=== PATIENT | female | born 1935 | race Caucasian/White ===

== ENCOUNTER 2024-01-13 14:00 | Outpatient (RCR) | payer MEDICARE, SELFPAY | END 2024-01-13 15:30 | disposition home or self-care (01) | LOC: PT 14:00 | PROVIDERS: PCP Internal Medicine | DX: M79.661 Pain in right lower leg (principal); S81.801A Unspecified open wound, right lower leg, initial encounter | CPT/HCPCS: 97140; 97163; 97597 ==

== ENCOUNTER 2025-03-29 10:41 | Inpatient (IN) | payer MEDICARE, SELFPAY ==
[2025-03-29] VITALS (16 sets, daily range): BP systolic 92–124; BP diastolic 45–81; PULSE 42–112; RESP 14–22; TEMP 36.4–36.8; O2SAT 90–93; BMI 26.6
--- NOTE | 2025-03-29 10:17 | ECG_ITS ---
APPROVED REPORT Exam: Resting ECG HR:108 bpm ECG Measurements Heart Rate 108 AXES QRSd 142 QRS -74 QT 335 T 95 QTc 399 Conclusion ATRIAL FIBRILLATION WITH RAPID VENTRICULAR RESPONSE RIGHT BUNDLE BRANCH BLOCK [120+ ms QRS DURATION, UPRIGHT V1, 40+ ms S IN I/aVL/V4/V5/V6] INFERIOR MYOCARDIAL INFARCTION , POSSIBLY ACUTE [40+ ms Q WAVE AND/OR ST/T ABNORMALITY IN II/aVF] ACUTE AL UNCONFIRMED REPORT Electronically signed by : LEAH NUNES, 03/30/2025 01:45:19
--- NOTE | 2025-03-29 10:21 | XR_ITS ---
FINAL REPORT TECHNIQUE: Single view chest CLINICAL HISTORY: soa FINDINGS: A single view of the chest was obtained. The heart is mildly enlarged. The lungs are underpenetrated. There is a large right pleural effusion. 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 There is no pneumothorax. IMPRESSION: Lobular opacities the right hemithorax likely due to known neoplasm. Large right pleural effusion Reviewed, Interpreted and Dictated by Fred Sotelo MD Transcribed by Alma Mota Authenticated and [facility]
--- NOTE | 2025-03-29 10:21 | CT_ITS ---
FINAL REPORT TECHNIQUE: multiple axial CT images were performed from the foramen magnum to the vertex without enhancement. This study was performed with techniques to keep radiation doses as low as reasonably achievable (ALARA). Individualized dose reduction techniques using automated exposure control or adjustment of mA and/or kV according to the patient's size were employed. CLINICAL HISTORY: AMS COMPARISON: None FINDINGS: The ventricles are proportionately enlarged. There is diffuse moderate atrophy. There is periventricular white matter change likely related to small vessel disease. There is no evidence of hemorrhage. No masses are identified. No extra-axial fluid is seen. The sinuses are normal. IMPRESSION: Moderate atrophy and chronic changes without acute process. Reviewed, Interpreted and Dictated by Fred Sotelo MD Transcribed by Natalia Maki Authenticated and [facility]
--- NOTE | 2025-03-29 10:21 | CT_ITS ---
FINAL REPORT TECHNIQUE: Postcontrast axial images of the chest were performed in a CTA protocol. This study was performed with techniques to keep radiation doses as low as reasonably achievable, (ALARA). Individualized dose reduction technique using automated exposure control or adjustment of mA and/or kV according to the patient's size were employed. CLINICAL HISTORY: soa FINDINGS: The heart is normal in size. No adenopathy is identified. The thoracic aorta is normal in caliber with no focal aneurysm or dissection identified. There is no filling defect to suggest pulmonary embolism. There is a large right pleural effusion. A multitude of lobular masses are seen in the right lung measuring up to 6.0 x 4.5 cm in AP and transverse dimension. There are confluent masses in the right lower lobe. Scarring is noted at the left lung base. IMPRESSION: No evidence for PE on this exam. Large right pleural effusion. Multiple lobular masses in the right lung may represent primary or metastatic neoplasia. Reviewed, Interpreted and Dictated by Fred Sotelo MD Transcribed by Alma Mota Authenticated and [facility]
--- NOTE | 2025-03-29 10:21 | CT_ITS ---
FINAL REPORT TECHNIQUE: NASCET technique utilized for stenosis evaluation. CLINICAL HISTORY: ams COMPARISON: None FINDINGS: There is a large right pleural effusion with nodular appearing consolidation in the right upper lobe, that will be described on the CT of the chest from the same date. RIGHT CAROTID: No significant stenosis is seen of the cervical common or internal carotid artery. Dense carotid artery calcifications are present at the bifurcation, without significant stenosis. LEFT CAROTID: No significant stenosis seen of the cervical common or internal carotid artery. Dense carotid artery calcifications are present at the bifurcation, without significant stenosis. VERTEBRALS: The vertebrals are patent. No significant stenosis is present. IMPRESSION: No significant arterial abnormality. In the upper chest, there is a large right pleural effusion with nodular appearing consolidation in the right upper lobe. Reviewed, Interpreted and Dictated by Fred Sotelo MD Transcribed by Natalia Maki Authenticated and [facility]
--- NOTE | 2025-03-29 10:21 | CT_ITS ---
FINAL REPORT TECHNIQUE: After the administration of intravenous contrast, axial images were obtained through the abdomen and pelvis by computed tomography. This study was performed with technique to keep radiation doses as low as reasonably achievable, (ALARA). Individualized dose reduction techniques using automated exposure control or adjustment of the MA and/or KV according to the patient's size were employed. CLINICAL HISTORY: abd pain hx of cancer FINDINGS: Abdomen: There are multitude of low-attenuation masses in the bilateral hepatic lobes measuring up to 6.2 x 4.5 cm. The spleen is unremarkable. The adrenals are normal. There is a cyst seen in the tail of the pancreas measuring up to 1.6 cm in greatest dimension. There are benign-appearing bilateral renal cyst measuring to 4.2 cm in greatest dimension. The aorta is normal in caliber. There is no free fluid or adenopathy. Pelvis: The appendix is not identified. A De Santiago catheter is seen within a decompressed urinary bladder. There is no free fluid or adenopathy. There is lumbar scoliosis convex to the right 45 degrees. Dense vascular calcification is seen of the abdominal aorta and iliac vessels. There are scattered sigmoid diverticula. 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 Reviewed, Interpreted and Dictated by Fred Sotelo MD Transcribed by lAma Mota Authenticated and [facility]
--- NOTE | 2025-03-29 10:21 | CT_ITS ---
FINAL REPORT TECHNIQUE: thin section axial CT with and without IV contrast supplemented with multiplanar 3-D reconstruction of the head. This study was performed with techniques to keep radiation doses as low as reasonably achievable, (ALARA)individualized dose reduction techniques using automated exposure control or adjustment of mA and/or kV according to the patient's size were employed. CLINICAL HISTORY: AMS COMPARISON: None FINDINGS: HEAD CT: Moderate global atrophy is present. There is no evidence of hemorrhage. No masses are identified. No extra-axial fluid is seen. The sinuses are normal. CTA: The cranial circulation is unremarkable. There is no significant stenosis, aneurysm or occlusion. IMPRESSION: No acute process. Reviewed, Interpreted and Dictated by Fred Sotelo MD Transcribed by Natalia Maki Authenticated and [facility]
[2025-03-29] MEDS: DEXTROSE 10 % IN WATER 500 ML 25 ML IV (10:30)
--- NOTE | 2025-03-29 10:37 | ED_ITS ---
Discharge Plan Disposition Patient Disposition: Admitted Condition: Serious Clinical Impressions Clinical Impression: Metastatic cancer, Pleural effusion, Unable to care for self, Acute dehydration, Acute hyponatremia, Acute hyperkalemia, SLADE (acute kidney injury) Discharge ED Provider: Tania Arellano General Adult HPI <Lee Miles MD - Last Filed: 03/29/25 23:09> General Chief complaint: Weakness Stated complaint: Low BP, Poss STEMI, Unresponisve Time Seen by Provider: 03/29/25 10:45 Mode of Arrival: EMS Source of Information: Relative and EMS History of Present Illness HPI narrative: Kassandra Cleary is an 89y female with a history of lung cancer with metastatic disease who was reportedly taken off of all of her medication approximately 1 week ago due to her liver not able to handle it per EMS. EMS states that she was supposed to have an appointment with her oncologist today but family noted that she was very sleepy and were unable to get her out the door this morning. When EMS arrived, they state that she was minimally responsive, hypotensive with systolic blood pressures in the 80s. Concern for STEMI on rhythm strip. Patient received 750 mL of IV fluids and was noted to be hypoglycemic in the 60s. Received glucose and route with improvement to over 100. On arrival, they state patient is more awake and alert then at any time during transport. Patient's fingerstick blood glucose back down to 60 again on arrival and she was started on a D10 infusion. Patient is somnolent but easily aroused with verbal stimuli. Mildly confused. GCS of 13. Related Data Previous Rx's ?Medication ?Instructions ?Recorded morphine concentrate 100 mg/5 mL 5 mg (0.25 mL) PO Q6H PRN pain #30 03/31/25 (20 mg/mL) oral solution mL Allergies Allergy/AdvReac Type Severity Reaction Status Date / Time No Known Allergies Allergy Verified 03/29/25 11:13 PFSH <Lee Miles MD - Last Filed: 03/29/25 23:09> [facility] Disclaimer: The information contained in this section may have been updated after the patient was seen, as this information can be updated by other users. Medical History (Updated 03/30/25 @ 17:09 by Davi Cutler MD) Lung mass HTN (hypertension) Afib Metastasis to liver Lung cancer Surgical History (Updated 03/29/25 @ 11:47 by Ana Charles RN) Hx of hysterectomy Hx of cholecystectomy Hx of appendectomy Social History (Updated 03/29/25 @ 18:15 by Jerica Martinez RN) Smoking Status: Former smoker tobacco type: cigarettes smoking status stop date: 11/18/1999 alcohol intake: never substance use type: denies use current occupational status: retired Travel in the last 8 weeks?: None Have you lived/traveled outside [place] in past 30 days?: No Contact w/someone who lives/traveled outside US past 30 days?: No Exposure to someone with infectious disease in past 14 days?: No Do you have a fever (greater than 100.4 F or 38 C)?: No Have you tested positive for COVID-19?: No Exposed to someone with COVID-19 in past 14 days?: No Do you have a sore throat?: No Do you have a cough?: No Do you have any weakness?: No Are you experiencing any nausea/vomitting?: No Do you have any diarrhea?: No Are you experiencing any unusual bleeding?: No Do you have any muscle aches/pain?: No Do you have any abdominal pain?: No Are you experiencing loss of taste or smell?: No <Lee Miles MD - Last Filed: 03/29/25 23:09> ROS Obtained: Yes Systems reviewed as appropriate & no additional complaints except as documented Physical Exam <Lee Miles MD - Last Filed: 03/29/25 23:09> General General appearance: other Comment: Somnolent, aroused with verbal stimuli. Appears pale. Ill appearing. Head Head exam: atraumatic Eye Eye exam: Present normal appearance, PERRL and scleral icterus ENT ENT exam: Present normal external ear exam Neck Neck exam: Present full ROM Chest Chest inspection: Present symmetric chest wall rise Respiratory Respiratory exam: Present normal lung sounds bilaterally and respiratory distress (Slight increased work of breathing); Absent wheezes or stridor Cardiovascular Cardiovascular exam: Present regular rate and normal rhythm Abdominal Exam Abdominal exam: Present soft and tenderness (Right upper quadrant); Absent guarding or rigidity Extremities Exam Extremities exam: Present other (Chronic appearing ulcer to the medial aspect of the right [place]) Back Exam Back exam: Present normal inspection Neurological Exam Neurological exam: Present other (Somnolent but aroused with verbal stimuli. Will open eyes with verbal stimuli. Will move all extremities but intermittently follows commands. Confused speech. GCS of 13 no focal deficits) Psychiatric Psychiatric exam: Present normal affect Skin Skin exam: Present warm and dry Medical Decision Making <Lee Miles MD - Last Filed: 03/29/25 23:09> Medical Records Screening: Per USPSTF and CDC recommendations, given the prevalence of disease in our region, it is our hospital?s policy to screen for HIV and viral Hepatitis for all patients aged 18 and over and those with ongoing risk factors. Alex Inquiry Pt receiving controlled substance: No Vital Signs: 03/29/25 10:09 03/29/25 10:55 03/29/25 11:00 Temperature 98.0 F Temperature Source Rectal Pulse Rate 89 42 L Pulse Rate [Right] 100 H Respiratory Rate 14 22 19 Blood Pressure 92/54 L 110/52 L Blood Pressure [Right Arm] 101/62 L Blood Pressure Mean [Right Arm] 75 Blood Pressure Source [Right Arm] Automatic Cuff 02 Sat by Pulse Oximetry 93 L Oxygen Delivery Method Nasal Cannula Nasal Cannula Nasal Cannula Oxygen Flow Rate (LPM) 4 4 4 03/29/25 12:48 03/29/25 13:00 03/29/25 13:30 Temperature Temperature Source Pulse Rate 95 H 91 H Pulse Rate [Right] Respiratory Rate 15 19 19 Blood Pressure 119/61 112/55 L 101/60 L Blood Pressure [Right Arm] Blood Pressure Mean [Right Arm] Blood Pressure Source [Right Arm] 02 Sat by Pulse Oximetry 91 L Oxygen Delivery Method Nasal Cannula Nasal Cannula Nasal Cannula Oxygen Flow Rate (LPM) 4 4 4 03/29/25 14:00 03/29/25 14:30 03/29/25 15:00 Temperature Temperature Source Pulse Rate 93 H 92 H 110 H Pulse Rate [Right] Respiratory Rate 18 17 19 Blood Pressure 101/70 L 105/45 L 102/47 L Blood Pressure [Right Arm] Blood Pressure Mean [Right Arm] Blood Pressure Source [Right Arm] 02 Sat by Pulse Oximetry 90 L Oxygen Delivery Method Nasal Cannula Nasal Cannula Nasal Cannula Oxygen Flow Rate (LPM) 4 4 4 03/29/25 15:30 03/29/25 16:00 03/29/25 16:13 Temperature Temperature Source Pulse Rate 108 H 112 H 72 Pulse Rate [Right] Respiratory Rate 16 17 21 Blood Pressure 108/74 L 96/57 L 115/61 Blood Pressure [Right Arm] Blood Pressure Mean [Right Arm] Blood Pressure Source [Right Arm] 02 Sat by Pulse Oximetry 90 L 91 L Oxygen Delivery Method Nasal Cannula Nasal Cannula Oxygen Flow Rate (LPM) 4 4 03/29/25 16:30 03/29/25 16:50 03/29/25 17:00 Temperature 97.6 F Temperature Source Axillary Pulse Rate 92 H Pulse Rate [Right] Respiratory Rate 17 16 17 Blood Pressure 104/60 L 124/60 115/57 L Blood Pressure [Right Arm] Blood Pressure Mean [Right Arm] Blood Pressure Source [Right Arm] 02 Sat by Pulse Oximetry Oxygen Delivery Method Nasal Cannula Oxygen Flow Rate (LPM) 4 Lab Data Lab Results 03/29/25 10:25: Urine Color Yellow, Urine Appearance Clear, Urine pH 5.5, Ur Specific [place] 1.025, Urine Protein Trace, Urine Glucose (UA) Negative, Urine Ketones Negative, Urine Blood Negative, Urine Nitrate Negative, Urine Bilirubin Negative, Urine Urobilinogen 0.2, Ur Leukocyte Esterase Negative, Urine RBC None, Urine WBC None, Ur Squamous Epith Cells None, Urine Bacteria None 03/29/25 10:40: WBC 8.9, RBC 5.00, Hgb 15.5, Hct 47.5 H, MCV 95.0, MCH 31.0, MCHC 32.6, RDW 15.7, Plt Count 201, MPV 9.6, Neut % (Auto) 81.0 H, Lymph % (Auto) 7.7 L, [place] % (Auto) 10.3 H, Eos % (Auto) 0.1, Baso % (Auto) 0.2, Neut # (Auto) 7.2, Lymph # (Auto) 0.7, [place] # (Auto) 0.9, Eos # (Auto) 0.0, Baso # (Auto) 0.0, VBG pH 7.22 L, VBG pCO2 46.4, VBG pO2 88.4 H, VBG HCO3 18.4 L, VBG Total CO2 19.9 L, VBG O2 Saturation 95.7 H, VBG Base Excess -9.3 L, VBG Lactic Acid 4.7 H, Ammonia 9, Lipase 96, HCV Ab [place] w/Rflx PCR Qn Negative, HIV Ag/Ab Combo Qual Negative 03/29/25 10:52: Urine Opiates Screen Negative, Urine Methadone Screen Negative, Ur Barbituates Screen Negative, Ur Phencyclidine Scrn Negative, Ur Amphetamines Screen Negative, U Benzodiazepines Scrn Negative, Urine Cocaine Screen Negative, U Marijuana (THC) Screen Negative 03/29/25 11:35: PT 44.0 H, INR 4.57 H, Sodium 129 L, Potassium 5.5 H, Chloride 101, Carbon Dioxide 22, Anion Gap 11.5, BUN 59 H, Creatinine 1.90 H, Estimated Creat Clear 23, Estimated GFR 25 L, Est GFR ( Amer) 30 L, Glucose 219 H, Calcium 9.7, Total Bilirubin 0.9, AST 976 H*, ALT 229 H, Alkaline Phosphatase 118, Total Protein 6.0 L, Albumin 3.3 L, Globulin 2.7, Albumin/Globulin Ratio 1.2, TSH 9.82 H 03/29/25 15:15: Lactate 3.2 H 03/31/25 06:17 03/31/25 06:17 Orders (Tests/Meds): ED MEDICATIONS Discontinued Medications Generic Name Dose Route Start Last Admin Trade Name Freq PRN Reason Stop Dose Admin Acetaminophen 650 mg 03/29/25 20:12 Acetaminophen 325mg Tab PO 04/28/25 20:11 Q4HP PRN Fever or Mild Pain (1-3) Amoxicillin/Clavulanate Potassium 1 each 03/30/25 21:00 03/31/25 13:33 Amoxicillin/Pot Clavulan 500mg Tablet PO 04/09/25 20:59 Not Given TID HUBERT Dextrose/Water 500 mls @ 25 mls/hr 03/29/25 10:30 03/29/25 10:30 Dextrose 10% In Water 500ml IV 04/28/25 10:29 25 mls/hr .Q20H HUBERT Administration Phytonadione 10 mg/ Sodium 51 mls @ 100 mls/hr 03/29/25 20:12 03/29/25 20:12 Chloride IV 03/29/25 20:42 100 mls/hr ONCE ONE Administration Cefepime HCl 2 gm/ Sodium 100 mls @ 200 mls/hr 03/29/25 21:30 03/29/25 21:30 Chloride IV 04/08/25 21:29 200 mls/hr Q24H HUBERT Administration Doxycycline Hyclate 100 mg/ 250 mls @ 166.667 mls/hr 03/29/25 21:30 03/29/25 21:30 Sodium Chloride IV 04/08/25 21:29 166.667 mls/hr Q12H HUBERT Administration Iopamidol 80 ml 03/29/25 11:56 03/29/25 11:57 Iopamidol-370 (76%);100ml Bottle IV 03/29/25 11:57 80 ml ONCE ONE Administration Iopamidol 80 ml 03/29/25 12:01 03/29/25 12:02 Iopamidol-370 (76%);100ml Bottle IV 03/29/25 12:02 80 ml ONCE ONE Administration Metoprolol Tartrate 25 mg 03/30/25 10:45 03/31/25 08:41 Metoprolol Tartrate 25mg Tablet PO 04/29/25 10:44 Not Given BID HUBERT Sodium Chloride 50 ml 03/29/25 11:56 03/29/25 11:57 0.9 % Sodium Chloride 50 Ml Vial IV 03/29/25 11:57 50 ml ONCE ONE Administration Sodium Chloride 10 ml 03/29/25 11:56 03/29/25 11:57 Sodium Chloride 0.9% 10ml Syr (Rad Only) IV 04/28/25 11:55 10 ml NEEDED PRN Administration Maintain IV Site Sodium Chloride 50 ml 03/29/25 12:01 03/29/25 12:01 0.9 % Sodium Chloride 50 Ml Vial IV 03/29/25 12:02 50 ml ONCE ONE Administration ORDERS Category Date Time Status CT abdomen pelvis w con Stat Cat Scan 03/29/25 10:[address] angio chest PE protocol Stat Cat Scan 03/29/25 10:[address] angio head Stat Cat Scan 03/29/25 10:[address] angio neck Stat Cat Scan 03/29/25 10:[address] head/brain wo con Stat Cat Scan 03/29/25 10:21 Completed CXR --portable [XR chest portable] Stat Exams 03/29/25 10:21 Completed Ammonia Stat Lab 03/29/25 10:40 Completed CBC w/Auto Diff [Complete Blood Count Auto Diff] Stat Lab 03/29/25 10:40 Completed CMP [Comprehensive Metabolic Panel] Stat Lab 03/29/25 11:35 Completed HIV Combo Stat Lab 03/29/25 10:40 Completed Hepatitis C Ab Qual. W/ RFX Stat Lab 03/29/25 10:40 Completed Lactic Acid Follow Up (RFLX 1) Stat Lab 03/29/25 15:15 Completed Lactic Acid Follow up (RFLX 2) Stat Lab 03/29/25 18:18 Completed Lipase Stat Lab 03/29/25 10:40 Completed PT INR [Prothrombin Time INR] Stat Lab 03/29/25 11:35 Completed TSH [Thyroid Stimulating Hormone] Stat Lab 03/29/25 11:35 Completed UA [Urinalysis and Microscopic] Stat Lab 03/29/25 10:25 Completed UDS [Drug Screen,Urine] Stat Lab 03/29/25 10:52 Completed Blood Culture Stat Micro 03/29/25 11:35 Results VBG [Venous Blood Gas] Stat RT 03/29/25 10:40 Completed ECG Data Tracing #1: I reviewed this ECG and interpreted as documented below: EKG interpreted by me personally. Afib with RVR with RBB. No STEMI Medical Decision Narrative: Kassandra Cleary is an 89y female with a 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 EMS states that she was supposed to have an appointment with her oncologist today but family noted that she was very sleepy and were unable to get her out the door this morning. When EMS arrived, they state that she was minimally responsive, hypotensive with systolic blood pressures in the 80s. Concern for STEMI on rhythm strip. Patient received 750 mL of IV fluids and was noted to be hypoglycemic in the 60s. Received glucose and route with improvement to over 100. On arrival, they state patient is more awake and alert then at any time during transport. Patient's fingerstick blood glucose back down to 60 again on arrival and she was started on a D10 infusion. Patient is somnolent but easily aroused with verbal stimuli. Mildly confused. GCS of 13. On arrival, patient's heart within normal limits, mildly hypotensive with blood pressures in the 90s systolic. Receiving IV fluids at this time. Physical exam, as stated above, revealed an ill-appearing female in no acute respiratory distress. She has some mild increased work of breathing. She is GCS 13 as she will open her eyes with verbal stimuli and is somnolent and confused. Abdomen is mildly tender to the right upper quadrant. EMS reports that she is on 2 L nasal cannula at baseline, however the tubing was extremely long in the house and she is currently on 5 L nasal cannula. Patient's daughter, who is her POA and niece as well as her brother arrived shortly after patient's arrival. They provide additional history. They report that patient was found to have lung mass recently with concern for metastatic disease to the liver. They report that she was supposed to have a biopsy on Saturday, however her primary care physician thinks that her poor condition will prevent her from being able to do this. They state that over the last several days, they have noticed a decline in her mental status, stating that she is more somnolent and unable to move on her own without significant multiperson assist. They are concerned about their ability to take care of her at home. They note that there have been talks about her going under hospice care but they have not pursued this at this time, however she is a DNR/DNI. Family notes that over the last week, she has not eaten and hardly drink any fluids. They have tried to feed her but this has been unsuccessful. Differential diagnosis includes, but is not limited to: Stroke, sepsis, hypovolemia, UTI, anemia, pulmonary embolism, pneumonia, pleural effusion worsening metastatic disease, hepatic encephalopathy, among others. Workup in the emergency department included CBC with differential, PT/INR, VBG, CMP, lipase, TSH, ammonia, UA, UDS, CTA of the head and neck, head CT without contrast, chest x-ray, CTA of the chest, CT abdomen pelvis with IV contrast, CTA of the head and neck, CT head without contrast. Laboratory studies show no leukocytosis, no anemia, INR significantly elevated at 4.57 (family states that she is not currently on a blood thinner and her INR has been elevated recently), pH of 7.22 with lactate elevated at 4.7. pCO2 normal at 46.4, bicarb low at 19.9. VBG consistent with a nonanion gap metabolic acidosis. CMP shows hyponatremia with sodium of 129, potassium mildly elevated at 5.5, SLADE with creatinine of 1.90 and BUN of 59 (unknown what patient's baseline creatinine is) liver enzymes significantly elevated but no evidence of obstruction pattern with AST of 976, ALT of 229. Alk phos is normal at 118 and bilirubin is normal at 0.9. TSH is elevated at 9.82. Urine without evidence of infection or blood or bacteria. Negative UDS. Patient's CT an Xray imaging interpreted by me personally. Patient has a large right sided pleural effusion with mass lesions concerning for cancer within the right lung. Lesions noted in the liver concerning for metastatic disease. No evidence of hemorrhagic stroke or LVO on patient's head and neck imaging. See radiology report for details. Patient's daughter, who is patient's POA, had to leave to attend a doctor's appointment. Patient's niece is at the bedside. I discussed with the patient's niece that the patient has significant findings on her workup today related to her cancer. We discussed transferring the patient for higher level of care as she will likely need chest tube/thoracentesis to evaluate the fluid collection for malignant versus infectious ascites and further cancer workup, however niece notes that they had already been in discussion about potentially making her hospice status and may choose to not escalate care at this time. They are contemplating both options at this time, however unable to contact patient's POA just yet given she is still in the doctor's appointment but will likely be available within an hour. Patient was placed into ED observation status at 1500. At 1540, I had a lengthy discussion with the patient's niece, her brother, her sister and her granddaughter as well as her POA (her daughter) about options moving forward as well as her concerning findings consistent with advanced metastatic disease. Daughter and family notes that it is known that she has metastatic disease to the liver and that she had an effusion of the lung. Her POA reports that they were already leaning towards pursuing hospice care. They feel that aggressively treating this/pursuing biopsy or chest tube would ultimately cause more harm and suffering for the patient and feel that chemotherapy or radiation therapy would be very hard on her physically. They feel that the most loving thing that they can do for her right now is make her comfortable and pursue hospice care. They would like to pursue admission to the hospital for comfort care measures and to hopefully set up hospice at home. It is felt like this is an appropriate step for the patient. Given this, will discuss patient's case with Dr. Nolasco with the hospital medicine service for admission for comfort care measures and moves towards hospice. The patient's care was handed off to the oncoming physician, Dr. arellano, pending evaluation and admission. <Tania Arellano, DO - Last Filed: 03/31/25 21:20> Vital Signs: 03/29/25 10:09 03/29/25 10:55 03/29/25 11:00 Temperature 98.0 F Temperature Source Rectal Pulse Rate 89 42 L Pulse Rate [Right] 100 H Respiratory Rate 14 22 19 Blood Pressure 92/54 L 110/52 L Blood Pressure [Right Arm] 101/62 L Blood Pressure Mean [Right Arm] 75 Blood Pressure Source [Right Arm] Automatic Cuff 02 Sat by Pulse Oximetry 93 L Oxygen Delivery Method Nasal Cannula Nasal Cannula Nasal Cannula Oxygen Flow Rate (LPM) 4 4 4 03/29/25 12:48 03/29/25 13:00 03/29/25 13:30 Temperature Temperature Source Pulse Rate 95 H 91 H Pulse Rate [Right] Respiratory Rate 15 19 19 Blood Pressure 119/61 112/55 L 101/60 L Blood Pressure [Right Arm] Blood Pressure Mean [Right Arm] Blood Pressure Source [Right Arm] 02 Sat by Pulse Oximetry 91 L Oxygen Delivery Method Nasal Cannula Nasal Cannula Nasal Cannula Oxygen Flow Rate (LPM) 4 4 4 03/29/25 14:00 03/29/25 14:30 03/29/25 15:00 Temperature Temperature Source Pulse Rate 93 H 92 H 110 H Pulse Rate [Right] Respiratory Rate 18 17 19 Blood Pressure 101/70 L 105/45 L 102/47 L Blood Pressure [Right Arm] Blood Pressure Mean [Right Arm] Blood Pressure Source [Right Arm] 02 Sat by Pulse Oximetry 90 L Oxygen Delivery Method Nasal Cannula Nasal Cannula Nasal Cannula Oxygen Flow Rate (LPM) 4 4 4 03/29/25 15:30 03/29/25 16:00 03/29/25 16:13 Temperature Temperature Source Pulse Rate 108 H 112 H 72 Pulse Rate [Right] Respiratory Rate 16 17 21 Blood Pressure 108/74 L 96/57 L 115/61 Blood Pressure [Right Arm] Blood Pressure Mean [Right Arm] Blood Pressure Source [Right Arm] 02 Sat by Pulse Oximetry 90 L 91 L Oxygen Delivery Method Nasal Cannula Nasal Cannula Oxygen Flow Rate (LPM) 4 4 03/29/25 16:30 03/29/25 16:50 03/29/25 17:00 Temperature 97.6 F Temperature Source Axillary Pulse Rate 92 H Pulse Rate [Right] Respiratory Rate 17 16 17 Blood Pressure 104/60 L 124/60 115/57 L Blood Pressure [Right Arm] Blood Pressure Mean [Right Arm] Blood Pressure Source [Right Arm] 02 Sat by Pulse Oximetry Oxygen Delivery Method Nasal Cannula Oxygen Flow Rate (LPM) 4 Lab Data Lab Results 03/29/25 10:25: Urine Color Yellow, Urine Appearance Clear, Urine pH 5.5, Ur Specific [place] 1.025, Urine Protein Trace, Urine Glucose (UA) Negative, Urine Ketones Negative, Urine Blood Negative, Urine Nitrate Negative, Urine Bilirubin Negative, Urine Urobilinogen 0.2, Ur Leukocyte Esterase Negative, Urine RBC None, Urine WBC None, Ur Squamous Epith Cells None, Urine Bacteria None 03/29/25 10:40: WBC 8.9, RBC 5.00, Hgb 15.5, Hct 47.5 H, MCV 95.0, MCH 31.0, MCHC 32.6, RDW 15.7, Plt Count 201, MPV 9.6, Neut % (Auto) 81.0 H, Lymph % (Auto) 7.7 L, [place] % (Auto) 10.3 H, Eos % (Auto) 0.1, Baso % (Auto) 0.2, Neut # (Auto) 7.2, Lymph # (Auto) 0.7, [place] # (Auto) 0.9, Eos # (Auto) 0.0, Baso # (Auto) 0.0, VBG pH 7.22 L, VBG pCO2 46.4, VBG pO2 88.4 H, VBG HCO3 18.4 L, VBG Total CO2 19.9 L, VBG O2 Saturation 95.7 H, VBG Base Excess -9.3 L, VBG Lactic Acid 4.7 H, Ammonia 9, Lipase 96, HCV Ab [place] w/Rflx PCR Qn Negative, HIV Ag/Ab Combo Qual Negative 03/29/25 10:52: Urine Opiates Screen Negative, Urine Methadone Screen Negative, Ur Barbituates Screen Negative, Ur Phencyclidine Scrn Negative, Ur Amphetamines Screen Negative, U Benzodiazepines Scrn Negative, Urine Cocaine Screen Negative, U Marijuana (THC) Screen Negative 03/29/25 11:35: PT 44.0 H, INR 4.57 H, Sodium 129 L, Potassium 5.5 H, Chloride 101, Carbon Dioxide 22, Anion Gap 11.5, BUN 59 H, Creatinine 1.90 H, Estimated Creat Clear 23, Estimated GFR 25 L, Est GFR ( Amer) 30 L, Glucose 219 H, Calcium 9.7, Total Bilirubin 0.9, AST 976 H*, ALT 229 H, Alkaline Phosphatase 118, Total Protein 6.0 L, Albumin 3.3 L, Globulin 2.7, Albumin/Globulin Ratio 1.2, TSH 9.82 H 03/29/25 15:15: Lactate 3.2 H Orders (Tests/Meds): ED MEDICATIONS Discontinued Medications Generic Name Dose Route Start Last Admin Trade Name Freq PRN Reason Stop Dose Admin Acetaminophen 650 mg 03/29/25 20:12 Acetaminophen 325mg Tab PO 04/28/25 20:11 Q4HP PRN Fever or Mild Pain (1-3) Amoxicillin/Clavulanate Potassium 1 each 03/30/25 21:00 03/31/25 13:33 Amoxicillin/Pot Clavulan 500mg Tablet PO 04/09/25 20:59 Not Given TID HUBERT Dextrose/Water 500 mls @ 25 mls/hr 03/29/25 10:30 03/29/25 10:30 Dextrose 10% In Water 500ml IV 04/28/25 10:29 25 mls/hr .Q20H UHBERT Administration Phytonadione 10 mg/ Sodium 51 mls @ 100 mls/hr 03/29/25 20:12 03/29/25 20:12 Chloride IV 03/29/25 20:42 100 mls/hr ONCE ONE Administration Cefepime HCl 2 gm/ Sodium 100 mls @ 200 mls/hr 03/29/25 21:30 03/29/25 21:30 Chloride IV 04/08/25 21:29 200 mls/hr Q24H HUBERT Administration Doxycycline Hyclate 100 mg/ 250 mls @ 166.667 mls/hr 03/29/25 21:30 03/29/25 21:30 Sodium Chloride IV 04/08/25 21:29 166.667 mls/hr Q12H HUBERT Administration Iopamidol 80 ml 03/29/25 11:56 03/29/25 11:57 Iopamidol-370 (76%);100ml Bottle IV 03/29/25 11:57 80 ml ONCE ONE Administration Iopamidol 80 ml 03/29/25 12:01 03/29/25 12:02 Iopamidol-370 (76%);100ml Bottle IV 03/29/25 12:02 80 ml ONCE ONE Administration Metoprolol Tartrate 25 mg 03/30/25 10:45 03/31/25 08:41 Metoprolol Tartrate 25mg Tablet PO 04/29/25 10:44 Not Given BID HUBERT Sodium Chloride 50 ml 03/29/25 11:56 03/29/25 11:57 0.9 % Sodium Chloride 50 Ml Vial IV 03/29/25 11:57 50 ml ONCE ONE Administration Sodium Chloride 10 ml 03/29/25 11:56 03/29/25 11:57 Sodium Chloride 0.9% 10ml Syr (Rad Only) IV 04/28/25 11:55 10 ml NEEDED PRN Administration Maintain IV Site Sodium Chloride 50 ml 03/29/25 12:01 03/29/25 12:01 0.9 % Sodium Chloride 50 Ml Vial IV 03/29/25 12:02 50 ml ONCE ONE Administration ORDERS Category Date Time Status CT abdomen pelvis w con Stat Cat Scan 03/29/25 10:[address] angio chest PE protocol Stat Cat Scan 03/29/25 10:[address] angio head Stat Cat Scan 03/29/25 10:[address] angio neck Stat Cat Scan 03/29/25 10:[address] head/brain wo con Stat Cat Scan 03/29/25 10:21 Completed CXR --portable [XR chest portable] Stat Exams 03/29/25 10:21 Completed Ammonia Stat Lab 03/29/25 10:40 Completed CBC w/Auto Diff [Complete Blood Count Auto Diff] Stat Lab 03/29/25 10:40 Completed CMP [Comprehensive Metabolic Panel] Stat Lab 03/29/25 11:35 Completed HIV Combo Stat Lab 03/29/25 10:40 Completed Hepatitis C Ab Qual. W/ RFX Stat Lab 03/29/25 10:40 Completed Lactic Acid Follow Up (RFLX 1) Stat Lab 03/29/25 15:15 Completed Lactic Acid Follow up (RFLX 2) Stat Lab 03/29/25 18:18 Completed Lipase Stat Lab 03/29/25 10:40 Completed PT INR [Prothrombin Time INR] Stat Lab 03/29/25 11:35 Completed TSH [Thyroid Stimulating Hormone] Stat Lab 03/29/25 11:35 Completed UA [Urinalysis and Microscopic] Stat Lab 03/29/25 10:25 Completed UDS [Drug Screen,Urine] Stat Lab 03/29/25 10:52 Completed Blood Culture Stat Micro 03/29/25 11:35 Results VBG [Venous Blood Gas] Stat RT 03/29/25 10:40 Completed Medical Decision Narrative: Kassandra Cleary is an 89y female with a 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 EMS states that she was supposed to have an appointment with her oncologist today but family noted that she was very sleepy and were unable to get her out the door this morning. When EMS arrived, they state that she was minimally responsive, hypotensive with systolic blood pressures in the 80s. Concern for STEMI on rhythm strip. Patient received 750 mL of IV fluids and was noted to be hypoglycemic in the 60s. Received glucose and route with improvement to over 100. On arrival, they state patient is more awake and alert then at any time during transport. Patient's fingerstick blood glucose back down to 60 again on arrival and she was started on a D10 infusion. Patient is somnolent but easily aroused with verbal stimuli. Mildly confused. GCS of 13. On arrival, patient's heart within normal limits, mildly hypotensive with blood pressures in the 90s systolic. Receiving IV fluids at this time. Physical exam, as stated above, revealed an ill-appearing female in no acute respiratory distress. She has some mild increased work of breathing. She is GCS 13 as she will open her eyes with verbal stimuli and is somnolent and confused. Abdomen is mildly tender to the right upper quadrant. EMS reports that she is on 2 L nasal cannula at baseline, however the tubing was extremely long in the house and she is currently on 5 L nasal cannula. Patient's daughter, who is her POA and niece as well as her brother arrived shortly after patient's arrival. They provide additional history. They report that patient was found to have lung mass recently with concern for metastatic disease to the liver. They report that she was supposed to have a biopsy on Saturday, however her primary care physician thinks that her poor condition will prevent her from being able to do this. They state that over the last several days, they have noticed a decline in her mental status, stating that she is more somnolent and unable to move on her own without significant multiperson assist. They are concerned about their ability to take care of her at home. They note that there have been talks about her going under hospice care but they have not pursued this at this time, however she is a DNR/DNI. Family notes that over the last week, she has not eaten and hardly drink any fluids. They have tried to feed her but this has been unsuccessful. Differential diagnosis includes, but is not limited to: Stroke, sepsis, hypovolemia, UTI, anemia, pulmonary embolism, pneumonia, pleural effusion worsening metastatic disease, hepatic encephalopathy, among others. Workup in the emergency department included CBC with differential, PT/INR, VBG, CMP, lipase, TSH, ammonia, UA, UDS, CTA of the head and neck, head CT without contrast, chest x-ray, CTA of the chest, CT abdomen pelvis with IV contrast, CTA of the head and neck, CT head without contrast. Laboratory studies show no leukocytosis, no anemia, INR significantly elevated at 4.57 (family states that she is not currently on a blood thinner and her INR has been elevated recently), pH of 7.22 with lactate elevated at 4.7. pCO2 normal at 46.4, bicarb low at 19.9. VBG consistent with a nonanion gap metabolic acidosis. CMP shows hyponatremia with sodium of 129, potassium mildly elevated at 5.5, SLADE with creatinine of 1.90 and BUN of 59 (unknown what patient's baseline creatinine is) liver enzymes significantly elevated but no evidence of obstruction pattern with AST of 976, ALT of 229. Alk phos is normal at 118 and bilirubin is normal at 0.9. TSH is elevated at 9.82. Urine without evidence of infection or blood or bacteria. Negative UDS. Patient's CT an Xray imaging interpreted by me personally. Patient has a large right sided pleural effusion with mass lesions concerning for cancer within the right lung. Lesions noted in the liver concerning for metastatic disease. No evidence of hemorrhagic stroke or LVO on patient's head and neck imaging. See radiology report for details. Patient's daughter, who is patient's POA, had to leave to attend a doctor's appointment. Patient's niece is at the bedside. I discussed with the patient's niece that the patient has significant findings on her workup today related to her cancer. We discussed transferring the patient for higher level of care as she will likely need chest tube/thoracentesis to evaluate the fluid collection for malignant versus infectious ascites and further cancer workup, however niece notes that they had already been in discussion about potentially making her hospice status and may choose to not escalate care at this time. They are contemplating both options at this time, however unable to contact patient's POA just yet given she is still in the doctor's appointment but will likely be available within an hour. Patient was placed into ED observation status at 1500. At 1540, I had a lengthy discussion with the patient's niece, her brother, her sister and her granddaughter as well as her POA (her daughter) about options moving forward as well as her concerning findings consistent with advanced metastatic disease. Daughter and family notes that it is known that she has metastatic disease to the liver and that she had an effusion of the lung. Her POA reports that they were already leaning towards pursuing hospice care. They feel that aggressively treating this/pursuing biopsy or chest tube would ultimately cause more harm and suffering for the patient and feel that chemotherapy or radiation therapy would be very hard on her physically. They feel that the most loving thing that they can do for her right now is make her comfortable and pursue hospice care. They would like to pursue admission to the hospital for comfort care measures and to hopefully set up hospice at home. It is felt like this is an appropriate step for the patient. Given this, will discuss patient's case with Dr. Nolasco with the hospital medicine service for admission for comfort care measures and moves towards hospice. The patient's care was handed off to the oncoming physician, Dr. arellano, pending evaluation and admission. DO Brandon: I assumed care of the patient at 1545 at time of departure to previous provider. At 1630, patient was admitted after 1 hour 30 minutes in ED observation status. Critical Care <Lee Miles MD - Last Filed: 03/29/25 23:09> Critical Care Time Critical Care Time: Yes Attestation: On 03/29/25, the high probability of a clinically significant, sudden or life threatening deterioration of the following system(s) required my full and direct attention, intervention and personal management. The time I documented below is in addition to time spent performing reported procedures but includes the following listed in this critical care notation. Total Time Total Critical Care Time: 35
[2025-03-29 10:50] LABS: Basophils % 0.2 % (0.1-2.0); Eosinophils % 0.1 % (0.1-12.0); Hematocrit 47.5 % (37.0-47.0); Hemoglobin 15.5 g/dL (12.2-16.2); Immature Granulocytes # 0.06 10^3uL; Immature Granulocytes % 0.7 %; Lymphocytes # 0.7 K/mm3 (0.7-4.5); Lymphocytes % 7.7 % (10-50); Mean Corpuscular HGB Conc 32.6 g/dL (31.8-35.4); Mean Platelet Volume 9.6 fl (7.4-10.4); Monocytes # 0.9 K/mm3 (0.1-1.0); Monocytes % 10.3 % (1.7-9.3); Neutrophils # 7.2 K/mm3 (1.8-7.8); Nucleated Red Blood Cells # 0 10^3/uL; Nucleated Red Blood Cells % 0 %; Platelet Count 201 K/mm3 (142-424); Red Cell Distribution Width 15.7 % (11.5-17.5); Red Cell Distribution Width-SD 51.6 fL; White Blood Count 8.9 K/mm3 (4.8-10.8)
[2025-03-29 11:06] LABS: VBG Base Excess -9.3 mmol/L (-2.4-2.3); VBG HCO3 18.4 mmol/L (23-30); VBG Oxygen Saturation 95.7 % (50-70); VBG PCO2 46.4 mmol/L (35-51); VBG PH 7.22 mmol/L (7.31-7.41); VBG PO2 88.4 mmol/L (28-40); VBG Total CO2 19.9 mmol/L (23-27)
[2025-03-29 11:06] LABS: Microscopic, Urine URINE MICROSCOPIC (MICROSCOPIC)
[2025-03-29 11:10] LABS: Lactate Venous 4.7 mmol/L (0.4-2.0)
--- NOTE | 2025-03-29 11:14 | PC.NURSE ---
Dr Miles notified of critical VBG results. Re-drawing chemistry and blue top blood tubes d/t it being hemolyzed.
[2025-03-29 11:17] LABS: Ammonia 9 umol/L (9-30)
[2025-03-29 11:18] LABS: Appearance,Urine CLEAR (Clear); Blood, Urine Negative (Negative); Color,Urine YELLOW (Yellow); Glucose,Urine (UA) Negative (Negative); Ketones,Urine Negative (Negative); Leukocyte Esterase,Urine Negative (Negative); Nitrate,Urine Negative (Negative); PH,Urine 5.5 (5.0-8.5); Protein,Urine TRACE (Negative); Specific Gravity, Urine 1.025 (1.005-1.030); Urobilinogen,Urine 0.2 EU/dl (0.2)
[2025-03-29 11:33] LABS: Bilirubin,Urine Negative (Negative)
[2025-03-29] MEDS: IOPAMIDOL-370 (76%);100ML BOTTLE 80 ML IV ×2 (11:57→12:02)
[2025-03-29] MEDS: SODIUM CHLORIDE 0.9% 10ML SYR (RAD ONLY) 10 ML IV (11:57)
[2025-03-29] MEDS: 0.9 % SODIUM CHLORIDE 50 ML VIAL IV ×2 (11:57→12:01)
[2025-03-29 12:00] LABS: INR 4.57 (0.9-1.1)
[2025-03-29 12:12] LABS: Lipase 96 U/L (23-300)
[2025-03-29 12:13] LABS: Alanine Aminotransferase 229 U/L (12-78); Albumin Level 3.3 g/dl (3.5-5.0); Albumin/Globulin Ratio 1.2 (1.1-1.8); Alkaline Phosphatase 118 U/L (38-126); Anion Gap 11.5 mEq/L (5-15); Bilirubin,Total 0.9 mg/dl (0.2-1.3); Blood Urea Nitrogen 59 mg/dl (7-17); Calcium 9.7 mg/dl (8.4-10.2); Carbon Dioxide 22 mmol/L (22.0-30.0); Chloride 101 mmol/L (98-107); Creatinine Clearance Estimated 23 mL/min (50-200); Estimated Glomerular Filt Rate 25 ml/min (>60); GFR (African American) 30 ML/MIN (>60); Globulin 2.7 g/dL (1.3-3.2); Glucose 219 mg/dl (74-100); Potassium 5.5 mmoL/L (3.5-5.1); Sodium 129 mmol/L (136-145)
[2025-03-29 12:23] LABS: Aspartate Amino Transferase 976 U/L (14-36)
[2025-03-29 12:44] LABS: Barbiturates Screen,Urine Negative ng/ml (<200)
[2025-03-29 12:44] LABS: Thyroid Stimulating Hormone 9.82 uIU/mL (0.465-4.68)
[2025-03-29 12:45] LABS: Benzodiazepines Screen,Urine Negative ng/ml (<200)
[2025-03-29 12:46] LABS: Amphetamine/Metha Screen,Urine Negative ng/ml (<1000); Cocaine Screen,Urine Negative ng/ml (<300)
[2025-03-29 12:47] LABS: Methadone Screen,Urine Negative ng/ml (<300)
[2025-03-29 12:48] LABS: Cannabinoid Screen,Urine Negative ng/ml (<50); Opiate Screen,Urine Negative ng/ml (<300)
[2025-03-29 12:49] LABS: Phencyclidine Screen,Urine Negative ng/ml (<25)
[2025-03-29 14:35] LABS: HIV Combo NEGATIVE (Negative)
[2025-03-29 15:08] LABS: Reflex Lactic Add Lactic Reflex
--- NOTE | 2025-03-29 15:33 | PC.NURSE ---
Dr Miles at bedside s.w pt , her family, and her daughter (POA) regarding plan of care, results, and discussions.
[2025-03-29 15:37] LABS: Lactic Acid Follow Up (RFLX 1) 3.2 mmol/L (0.7-2.1)
--- NOTE | 2025-03-29 16:10 | PC.NURSE ---
[facility] NOTIFIED OF ADMISSION
--- NOTE | 2025-03-29 16:27 | PC.NURSE ---
FSBS @ 111 mg/dl
--- NOTE | 2025-03-29 16:49 | PC.NURSE ---
Called report to Adrianne Martinez RN
[2025-03-29 17:05] LABS: Hepatitis C Ab Qual. W/ RFX NEGATIVE (Negative)
[2025-03-29 17:24] LABS: Reflex Lactic (2 hrs) Add Lactic Reflex
[2025-03-29 19:02] LABS: Lactic Acid Follow up (RFLX 2) 3.2 mmol/L (0.7-2.1)
--- NOTE | 2025-03-29 19:18 | PC.NURSE ---
Mottled hands, feet and legs on admission
--- NOTE | 2025-03-29 19:23 | PC.WOUNDNOTE ---
bruise/scab right back of head
[2025-03-29] MEDS: PHYTONADIONE 10 MG in 0.9 % SODIUM CHLORIDE 50 ML 100 MG IV (20:12)
--- NOTE | 2025-03-29 21:29 | P.HP_ITS ---
History of Present Illness *Admission Date: 03/29/25 *Reason for visit:: Weakness, shortness of breath *History of present illness: Kassandra Cleary is a 89-year-old female who is a former smoker and no other significant medical history who presents with progressive weakness, shortness of breath. She was recently evaluated at [facility] in November 2024 and was found to have a right lung mass. Patient and family decided not to pursue chemotherapy due to adverse side effects. Unfortunately, over the past 2 weeks patient has had functional decline, progressive weakness, and shortness of breath. CTA chest shows multiple right lung lesions concerning for cancer, with metastasis to the liver. 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 ED provider had extensive conversation with the family, and they ultimately elected to pursue hospice care. Other workup includes sodium 129, potassium 5.5, creatinine 1.9, AST/ALT 976/229. Case discussed by the ED provider and decision was made to admit patient for further discussion of findings and hospice care. [facility] Disclaimer: The information contained in this section may have been updated after the p atient was seen, as this information can be updated by other users. Medical History (Updated 03/29/25 @ 16:03 by Lee Miles MD) HTN (hypertension) Afib Metastasis to liver Lung cancer Surgical History (Updated 03/29/25 @ 11:47 by Ana Charles RN) Hx of hysterectomy Hx of cholecystectomy Hx of appendectomy Social History (Updated 03/29/25 @ 18:15 by Jerica Martinez RN) Smoking Status: Former smoker tobacco type: cigarettes smoking status stop date: 11/18/1999 alcohol intake: never substance use type: denies use current occupational status: retired Travel in the last 8 weeks?: None Have you lived/traveled outside [place] in past 30 days?: No Contact w/someone who lives/traveled outside US past 30 days?: No Exposure to someone with infectious disease in past 14 days?: No Do you have a fever (greater than 100.4 F or 38 C)?: No Have you tested positive for COVID-19?: No Exposed to someone with COVID-19 in past 14 days?: No Do you have a sore throat?: No Do you have a cough?: No Do you have any weakness?: No Are you experiencing any nausea/vomitting?: No Do you have any diarrhea?: No Are you experiencing any unusual bleeding?: No Do you have any muscle aches/pain?: No Do you have any abdominal pain?: No Are you experiencing loss of taste or smell?: No Other Medical History Have you received the Flu Vaccine for this season: Yes Have you received the Pneumonia Vaccine: Yes Meds Home Medications and Allergies Home Medications ?Medication ?Instructions ?Recorded ?Confirmed ?Type No Known Home Medications 03/29/25 03/29/25 History New Prescriptions to Start Prescriptions: Allergies Allergy/AdvReac Type Severity Reaction Status Date / Time No Known Allergies Allergy Verified 03/29/25 11:13 Exam Data for Last 24 hours Vital signs and Labs for Last 24 Hours: Temp Pulse Resp BP Pulse Ox O2 Del Method O2 Flow Rate 98.3 F 95 H 22 123/81 90 L Nasal Cannula 4 03/29/25 20:12 03/29/25 20:12 03/29/25 20:12 03/29/25 20:12 03/29/25 20:12 03/29/25 20:44 03/29/25 20:44 Laboratory Results - last 24 hr 03/29/25 10:25: Urine Color Yellow, Urine Appearance Clear, Urine pH 5.5, Ur Specific [place] 1.025, Urine Protein Trace, Urine Glucose (UA) Negative, Urine Ketones Negative, Urine Blood Negative, Urine Nitrate Negative, Urine Bilirubin Negative, Urine Urobilinogen 0.2, Ur Leukocyte Esterase Negative, Urine RBC None, Urine WBC None, Ur Squamous Epith Cells None, Urine Bacteria None 03/29/25 10:40: WBC 8.9, RBC 5.00, Hgb 15.5, Hct 47.5 H, MCV 95.0, MCH 31.0, MCHC 32.6, RDW 15.7, Plt Count 201, MPV 9.6, Neut % (Auto) 81.0 H, Lymph % (Auto) 7.7 L, [place] % (Auto) 10.3 H, Eos % (Auto) 0.1, Baso % (Auto) 0.2, Neut # (Auto) 7.2, Lymph # (Auto) 0.7, [place] # (Auto) 0.9, Eos # (Auto) 0.0, Baso # (Auto) 0.0, VBG pH 7.22 L, VBG pCO2 46.4, VBG pO2 88.4 H, VBG HCO3 18.4 L, VBG Total CO2 19.9 L, VBG O2 Saturation 95.7 H, VBG Base Excess -9.3 L, VBG Lactic Acid 4.7 H, Ammonia 9, Lipase 96, HCV Ab [place] w/Rflx PCR Qn Negative, HIV Ag/Ab Combo Qual Negative 03/29/25 10:52: Urine Opiates Screen Negative, Urine Methadone Screen Negative, Ur Barbituates Screen Negative, Ur Phencyclidine Scrn Negative, Ur Amphetamines Screen Negative, U Benzodiazepines Scrn Negative, Urine Cocaine Screen Negative, U Marijuana (THC) Screen Negative 03/29/25 11:35: PT 44.0 H, INR 4.57 H, Sodium 129 L, Potassium 5.5 H, Chloride 101, Carbon Dioxide 22, Anion Gap 11.5, BUN 59 H, Creatinine 1.90 H, Estimated Creat Clear 23, Estimated GFR 25 L, Est GFR ( Amer) 30 L, Glucose 219 H, Calcium 9.7, Total Bilirubin 0.9, AST 976 H*, ALT 229 H, Alkaline Phosphatase 118, Total Protein 6.0 L, Albumin 3.3 L, Globulin 2.7, Albumin/Globulin Ratio 1.2, TSH 9.82 H 03/29/25 15:15: Lactate 3.2 H 03/29/25 18:18: Lactate 3.2 H I & O for Last 24 hours: Intake & Output 03/26/25 03/27/25 03/28/25 03/29/25 23:59 23:59 23:59 23:59 Intake Total 500 / 500 Balance 500 / 500 Weight 72.575 kg Constitutional Constitutional: no acute distress *Routine HEENT Exam Head: Present normocephalic Eye: Present EOMI and PERRL ENT: Present mucous membranes moist *Routine Neck Exam Neck: Present supple; Absent lymphadenopathy *Routine Respiratory Exam Respiratory: Present CTA bilaterally *Routine Cardiovascular Exam Cardiovascular: Present RRR *Routine Abdominal Exam Abdominal: Present soft and normoactive bowel sounds; Absent tenderness *Routine Rectal Exam Rectal:: deferred *Routine Genitalia Exam Genitalia:: deferred *Routine Extremities Exam Extremities: Absent cyanosis, clubbing or edema *Routine Skin Exam Skin: Present warm; Absent rash *Routine Neurological Exam Neurological: Present alert Assessment and Plan *Assessment and plan (1) Metastatic cancer: Status: Acute Category: Medical Code(s): C79.9 - Secondary malignant neoplasm of unspecified site (2) Pleural effusion: Status: Acute Category: Medical Code(s): J90 - Pleural effusion, not elsewhere classified Plan Kassandra Cleary is a 89-year-old female who is a former smoker and no other significant medical history who presents with progressive weakness, shortness of breath. She was recently evaluated at [facility] in November 2024 and was found to have a right lung mass. Patient and family decided not to pursue chemotherapy due to adverse side effects. Unfortunately, over the past 2 weeks patient has had functional decline, progressive weakness, and shortness of breath. CTA chest shows multiple right lung lesions concerning for cancer, with metastasis to the liver. 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 ED provider had extensive conversation with the family, and they ultimately elected to pursue hospice care. Other workup includes sodium 129, potassium 5.5, creatinine 1.9, AST/ALT 976/229. Case discussed by the ED provider and decision was made to admit patient for further discussion of findings and hospice care. #Acute hypoxic respiratory failure #Suspected right lung cancer #Liver metastasis #Hepatic failure #Renal failure #Hyponatremia #Suspected SIADH ? CTA findings concerning for right lung cancer, metastasis to the liver. 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 ? I again extensively discussed findings with family at bedside, predominantly patient's POA/daughter Kanika Lee, and the gravity of the findings. POA reiterated that they had already discussed chemotherapy with the patient and collectively decided not to proceed with it as the risks outweighed the benefits given advanced age and staging. Family wants to pursue hospice care. ? Given most recent functional decline, shortness of breath is likely from suspected large malignant pleural effusion I offered the possibility of palliative thoracentesis pending discussion with pulmonology tomorrow. Family would like to have this done if possible. ? Started IV cefepime, doxycycline as a palliative prophylactic antibiotics. ? Pulmonology consulted, pending further recommendations. PT/INR elevated, ordered IV vitamin K 10 mg in case thoracentesis is done tomorrow. ? Case management and hospice care consulted, pending further recommendations. ? Given renal failure and unknown baseline, held off on Lasix challenge tonight to allow patient to rest. Currently comfortable without respiratory distress. ? Follow-up CMP, CBC, PT/INR in the morning. DNR/DNI
[2025-03-29] MEDS: DOXYCYCLINE HYCLATE 100 MG in 0.9 % SODIUM CHLORIDE 250 ML 166.667 MG IV (21:30)
[2025-03-29] MEDS: CEFEPIME HCL 2 GM in 0.9 % SODIUM CHLORIDE 100 ML IV (21:30)
[2025-03-29 23:13] LABS: NT Pro Brain Natriuretic Pep. 17100 pg/mL (0-450)
--- NOTE | 2025-03-30 00:31 | EXP.EVENT.NO ---
Advance care planning note Active diagnosis: Metastatic lung cancer The patient's active diagnoses are of sufficient risk that focused discussion on advanced care planning is indicated in order to allow the patient to thoughtfully consider personal goals of care; and, if situations arise that prevent the ability to personally give input, to ensure appropriate representation of their personal desires through documentation or informed surrogate decision makers. Discussion: CTA findings concerning for right lung cancer, metastasis to the liver. 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 I again extensively discussed findings with family at bedside, predominantly patient's POA/daughter Kanika Lee, and the gravity of the findings. POA reiterated that they had already discussed chemotherapy with the patient and collectively decided not to proceed with it as the risks outweighed the benefits given advanced age and staging. Family wants to pursue hospice care. Given most recent functional decline, shortness of breath is likely from suspected large malignant pleural effusion I offered the possibility of palliative thoracentesis pending discussion with pulmonology tomorrow. Family would like to have this done if possible. Persons present and participating in discussion: Daughter and family as above Time spent: 25 mins Total time spent [id number] in education and discussion directly related to advance care planning: (specific minutes 15-30 or >45)
--- NOTE | 2025-03-30 02:57 | EXP.EVENT.NO ---
This patient that possible plans of placing on hospice tomorrow, was noted that she pulled her IV out some labs were drawn earlier and patient was quite unpleased with having that done. Per the nurse Due to this reason I told the nurse not to replace the IV and that we will stop blood draws at this point in time we will reevaluate on next shift whether or not they are required. As family will be here and can talk with daytime provider whether or not hospice will be the next plan of care. So once again at this time we will avoid any unnecessary medical procedures such as lab draws
[2025-03-30 04:00] VITALS: BP 104/65; PULSE 116; RESP 16; TEMP 36.6; O2SAT 91; BMI 26.1
--- NOTE | 2025-03-30 06:16 | PC.NURSE ---
Pt pending possible hospice placement today. V/s, alert to self (baseline), pt on 4LNC-baseline satting in low 90's. Pt extremities are cold to touch, red/purple in color at times. Pulses are +1. Pt denied pain. Pt pulled IV out. Provider notified, stated to leave IV out. Pt's code status changed from FC to DNR/DNI at the beginning of shift. [place] cath care complete. Plan of care ongoing.
[2025-03-30 08:00] VITALS: BP 95/51; PULSE 99; RESP 20; TEMP 36.4; O2SAT 98
--- NOTE | 2025-03-30 08:40 | PC.NURSE ---
oral care provided
--- NOTE | 2025-03-30 09:34 | SW/DCPLANNER ---
Addendum entered by Mary Gordillo 03/31/25 09:26: Patient will return today w/ Hospice services to admit. Hospice stated that all DME is set up at home. Addendum entered by Mary Gordillo 03/30/25 11:45: Safia w/ Hospice at bedside to evaluate patient. Per Pulm patient will have a thoracentesis this afternoon. Hospice spoke w/ patient's family and decision was made to set up DME (hospital bed and home O2) at home today with expected discharge in the AM. Dr Cutler is aware and agreeable w/ this plan. I have also provided patient's w a private sitter list at this time. Daughter is only interested in patient returning home w/ Hospice services. Original Note: I received a Hospice consult on this patient. Per patient's daughter/POA they are agreeable to Hospice services. Daughter prefers to return home w/ patient and begin services. Patient information will be faxed to Safia w/ Hospice this AM. I will continue to follow up.
--- NOTE | 2025-03-30 09:44 | P.CONS_ITS ---
History of Present Illness History of present illness: Ms. Cleary is a 89-year-old female greater than [id number] smoking who presented to the ER with worsening respiratory distress found to have lung mass and large left pleural effusion pulmonary was called for further evaluation and management. As per chart review patient has known that she had concerning lung cancer and decided not to pursue chemoradiation previously. [facility] Disclaimer: The information contained in this section may have been updated after the patient was seen, as this information can be updated by other users. Medical History (Updated 03/30/25 @ 09:44 by Fili Funez MD) Lung mass HTN (hypertension) Afib Metastasis to liver Lung cancer Surgical History (Updated 03/29/25 @ 11:47 by Ana Charles RN) Hx of hysterectomy Hx of cholecystectomy Hx of appendectomy Social History (Updated 03/29/25 @ 18:15 by Jerica Martinez RN) Smoking Status: Former smoker tobacco type: cigarettes smoking status stop date: 11/18/1999 alcohol intake: never substance use type: denies use current occupational status: retired Travel in the last 8 weeks?: None Have you lived/traveled outside US in past 30 days?: No Contact w/someone who lives/traveled outside US past 30 days?: No Exposure to someone with infectious disease in past 14 days?: No Do you have a fever (greater than 100.4 F or 38 C)?: No Have you tested positive for COVID-19?: No Exposed to someone with COVID-19 in past 14 days?: No Do you have a sore throat?: No Do you have a cough?: No Do you have any weakness?: No Are you experiencing any nausea/vomitting?: No Do you have any diarrhea?: No Are you experiencing any unusual bleeding?: No Do you have any muscle aches/pain?: No Do you have any abdominal pain?: No Are you experiencing loss of taste or smell?: No Review of Systems Review of Systems Review of systems:: unable to obtain Review of systems (narrative): Patient lethargic not responding appropriately to verbal, Pulmonology Exam Inpatient Vital signs and Labs for Last 24 Hours: Temp Pulse Resp BP Pulse Ox O2 Del Method O2 Flow Rate 97.6 F 99 H 20 95/51 L 98 Nasal Cannula 4 03/30/25 08:00 03/30/25 08:00 03/30/25 08:00 03/30/25 08:00 03/30/25 08:00 03/30/25 09:05 03/30/25 09:05 Laboratory Results - last 24 hr 03/29/25 10:25: Urine Color Yellow, Urine Appearance Clear, Urine pH 5.5, Ur Specific [place] 1.025, Urine Protein Trace, Urine Glucose (UA) Negative, Urine Ketones Negative, Urine Blood Negative, Urine Nitrate Negative, Urine Bilirubin Negative, Urine Urobilinogen 0.2, Ur Leukocyte Esterase Negative, Urine RBC None, Urine WBC None, Ur Squamous Epith Cells None, Urine Bacteria None 03/29/25 10:40: WBC 8.9, RBC 5.00, Hgb 15.5, Hct 47.5 H, MCV 95.0, MCH 31.0, MCHC 32.6, RDW 15.7, Plt Count 201, MPV 9.6, Neut % (Auto) 81.0 H, Lymph % (Auto) 7.7 L, [place] % (Auto) 10.3 H, Eos % (Auto) 0.1, Baso % (Auto) 0.2, Neut # (Auto) 7.2, Lymph # (Auto) 0.7, [place] # (Auto) 0.9, Eos # (Auto) 0.0, Baso # (Auto) 0.0, VBG pH 7.22 L, VBG pCO2 46.4, VBG pO2 88.4 H, VBG HCO3 18.4 L, VBG Total CO2 19.9 L, VBG O2 Saturation 95.7 H, VBG Base Excess -9.3 L, VBG Lactic Acid 4.7 H, Ammonia 9, Lipase 96, HCV Ab [place]RRA[place] w/Rflx PCR Qn Negative, HIV Ag/Ab Combo Qual Negative 03/29/25 10:52: Urine Opiates Screen Negative, Urine Methadone Screen Negative, Ur Barbituates Screen Negative, Ur Phencyclidine Scrn Negative, Ur Amphetamines Screen Negative, U Benzodiazepines Scrn Negative, Urine Cocaine Screen Negative, U Marijuana (THC) Screen Negative 03/29/25 11:35: PT 44.0 H, INR 4.57 H, Sodium 129 L, Potassium 5.5 H, Chloride 101, Carbon Dioxide 22, Anion Gap 11.5, BUN 59 H, Creatinine 1.90 H, Estimated Creat Clear 23, Estimated GFR 25 L, Est GFR ( Amer) 30 L, Glucose 219 H, Calcium 9.7, Total Bilirubin 0.9, AST 976 H*, ALT 229 H, Alkaline Phosphatase 118, Total Protein 6.0 L, Albumin 3.3 L, Globulin 2.7, Albumin/Globulin Ratio 1.2, TSH 9.82 H 03/29/25 15:15: Lactate 3.2 H 03/29/25 18:18: Lactate 3.2 H 03/29/25 22:45: NT-Pro-B Natriuret Pep 45900 H I & O for Labs for Last 24 Hours: Intake & Output 03/27/25 03/28/25 03/29/25 03/30/25 23:59 23:59 23:59 23:59 Intake Total 500 / 600 100 / 100 Output Total 400 / 400 Balance 100 / 200 100 / 100 Weight 160 lb 156 lb 9.6 oz Constitutional: Present severe distress Head: Present normocephalic and atraumatic ENT: Present normal exam, normal oropharynx and mucous membranes moist Neck: Present normal inspection and full ROM Respiratory: Present respiratory distress, rhonchi, crackles, diminished air movement and able to speak in complete sentences; Absent wheezes or normal respiratory effort Cardiac: Present S1/S2, Tachycardia and radial pulses present GI: Present soft and distention; Absent tenderness or guarding Rectal (female): Present deferred (female): Present deferred Skin: Present intact; Absent cyanosis or jaundice Neuro: Present awake; Absent alert or oriented x 3 Extremities: Present normal inspection; Absent clubbing or cyanosis Psychiatric: Present unable to assess Meds Home Medications and Allergies Home Medications ?Medication ?Instructions ?Recorded ?Confirmed ?Type No Known Home Medications 03/29/25 03/29/25 History New Prescriptions to Start Prescriptions: Allergies Allergy/AdvReac Type Severity Reaction Status Date / Time No Known Allergies Allergy Verified 03/29/25 11:13 Results Laboratory Findings 03/29/25 10:40 03/29/25 11:35 PT/INR, D-dimer PT 44.0 seconds (10.1-12.5) H 03/29/25 11:35 INR 4.57 (0.9-1.1) H 03/29/25 11:35 Abnormal lab findings: Abnormal Labs 03/29/25 03/29/25 03/29/25 10:40 11:35 15:15 Hct 47.5 H Neut % (Auto) 81.0 H Lymph % (Auto) 7.7 L [place] % (Auto) 10.3 H PT 44.0 H INR 4.57 H VBG pH 7.22 L VBG pO2 88.4 H VBG HCO3 18.4 L VBG Total CO2 19.9 L VBG O2 Saturation 95.7 H VBG Base Excess -9.3 L VBG Lactic Acid 4.7 H Sodium 129 L Potassium 5.5 H BUN 59 H Creatinine 1.90 H Estimated GFR 25 L Est GFR ( Amer) 30 L Glucose 219 H Lactate 3.2 H AST 976 H* ALT 229 H NT-Pro-B Natriuret Pep Total Protein 6.0 L Albumin 3.3 L TSH 9.82 H 03/29/25 03/29/25 18:18 22:45 Hct Neut % (Auto) Lymph % (Auto) [place] % (Auto) PT INR VBG pH VBG pO2 VBG HCO3 VBG Total CO2 VBG O2 Saturation VBG Base Excess VBG Lactic Acid Sodium Potassium BUN Creatinine Estimated GFR Est GFR ( Amer) Glucose Lactate 3.2 H AST ALT NT-Pro-B Natriuret Pep 65236 H Total Protein Albumin TSH Assessment and Plan *Assessment and plan (1) Pleural effusion: Status: Acute Category: Medical Code(s): J90 - Pleural effusion, not elsewhere classified (2) Lung mass: Status: Acute Category: Medical Code(s): R91.8 - Other nonspecific abnormal finding of lung field Plan Ms. Cleary is a 89-year-old female greater than 08-psxi-vsby smoking who presented to the ER with worsening respiratory distress found to have lung mass and large left pleural effusion pulmonary was called for further evaluation and management. As per chart review patient has known that she had concerning lung cancer and decided not to pursue chemoradiation previously. INR 4.57. Electrolyte derangements including SLADE on CKD, hyponatremia and hyperkalemia. Afebrile. Hemodynamically stable. No evidence of leukocytosis. CTA upon admission no evidence of pulmonary embolism. Large right pleural effusion and lung mass along with lymphadenopathy. Patient lethargic. Not responding appropriately to verbal commands. Extensively discussed with the patient regarding possible etiologies. They would like to pursue thoracentesis to improve her current symptom control before pursuing hospice care. Risk and benefits explained to the family aspirin in setting of her elevated INR and hepatic dysfunction. Plan: Schedule for ultrasound paracentesis From pulmonary standpoint we will recommend DuoNebs every 4 hours on scheduled basis along with Augmentin 3 times daily pending pleural fluid culture results Continue oxygen supplementation to maintain O2 saturation goal of 90% and above Follow-up with hospice recommendations
--- NOTE | 2025-03-30 10:36 | [facility]H.PTWOUND ---
Rehab Inpt Wound Evaluation Rehab IP Wound Evaluation Start: 03/29/25 18:25 Freq: ONCE Status: Active Protocol: Document 03/30/25 09:57 KAREN (Rec: 03/30/25 10:17 KAREN [id number]) Rehab PT Wound Assessment Subjective Subjective Pt non-verbal/lethargic at this time and did not provide a subjective. Pt did not visually or verbally express pain throughout wound care assessment and interventions. Wound Sacrum Wound Type Pressure Ulcer Wound Staging Stage II Query Text:Stage I - Unbroken, red skin, no blanching. Stage II - Skin broken, superficial skin loss involving epidermis alone or also dermis. Partial loss of skin layers. Stage III - Pressure area involves epidermis, dermis and subcutaneous tissue, full thickness skin loss. Stage IV - Pressure area involves epidermis, subcutaneous tissue, bone and other supportive tissue. Full thickness skin loss with extensive destruction of underlying tissue and structures. Wound Length (cm) 0.8 Wound Width (cm) 1.0 Wound Depth (cm) 0.1 Wound Bed Appearance Jo Percentage of Necrosis (Nunez) (%) 10 Wound Margins Description Well Defined Wound Drainage Description Serosanguineous Drainage Amount Small Drainage Odor No Odor Wound Topical Solution/Irrigant Saline Irrigant Primary Dressing Composite Medial Ankle Wound Type Pressure Ulcer Wound Staging Stage II Query Text:Stage I - Unbroken, red skin, no blanching. Stage II - Skin broken, superficial skin loss involving epidermis alone or also dermis. Partial loss of skin layers. Stage III - Pressure area involves epidermis, dermis and subcutaneous tissue, full thickness skin loss. Stage IV - Pressure area involves epidermis, subcutaneous tissue, bone and other supportive tissue. Full thickness skin loss with extensive destruction of underlying tissue and structures. Wound Length (cm) 2.3 Wound Width (cm) 2.3 Wound Depth (cm) 0.1 Wound Bed Appearance Dusky Red,Yellow Percentage Granulated (%) 90 Wound Margins Description Well Defined Wound Drainage Description Serosanguineous Drainage Amount Small Drainage Odor No Odor Wound Topical Solution/Irrigant Saline Irrigant Primary Dressing Composite Plan/Recommendation Comment Pt presents with a stage II wound on her R medial ankle. PT irrigated with saline and placed a composite over the wound. Pt also presents with a small pressure wound on her sacrum. PT not able to fully appreciate wound staging d/t some necrotic tissue at 3 o' clock. PT irrigated with saline and applied composite/ bordered foam. Nursing to continue dressing changes as needed and to reach out to wound care with any further questions or concerns. Eval Complexity Eval Charge Codes 22864 - Moderate Complexity PHYSICIAN CERTIFICATION: I certify the specified therapy services for Kassandra Cleary are required, authorized, and reviewed every 30 days.
[2025-03-30] MEDS: METOPROLOL TARTRATE 25MG TABLET 25 MG PO (12:06)
--- NOTE | 2025-03-30 12:26 | US_ITS ---
FINAL REPORT CLINICAL HISTORY: Pleural effusion -- rt thoracentesis -- dr jenni funez -- 2100 ml FINDINGS: ULTRASOUND GUIDANCE FOR THORACENTESIS: Ultrasound guidance was performed prior to thoracentesis. A region of pleural fluid in the right chest was localized under ultrasound guidance. The thoracentesis was performed by Dr. Funez, and 2100 mL of pleural fluid was withdrawn. IMPRESSION: Region of pleural fluid localized under ultrasound guidance for prior to Dr. Funez performing thoracentesis. Reviewed, Interpreted and Dictated by Fred Sotelo MD Transcribed by Lila Melendez Authenticated and [facility]
--- NOTE | 2025-03-30 13:56 | P.PCN_ITS ---
[facility] Procedure Note Date: 03/30/25 Time: 13:56 Procedure Note:: Procedure: Right Thoracentesis Referring physician: Dr. Cutler Indication for procedure: Pleural Effusion, Hypoxic Respiratory failure A time out was performed, and the chest x-ray was reviewed, the appropriate side was confirmed and marked. My hands were washed immediately prior to the procedure. I wore a surgical cap, mask with protective eyewear, sterile gown, and sterile gloves throughout the procedure. The patient was prepped and draped in a sterile manner using chlorhexidine scrub after the appropriate level was percussed and confirmed by ultrasound. 1% lidocaine was used to anesthetize the skin, ?subcutaneous tissue, superior aspect of the rib periosteum and parietal pleura.? A finder needle was then introduced at the seventh intercoastal space posteriorly?to locate the pleural fluid; blood-tinged fluid was aspirated. A 10- blade scalpel was used to deepika the skin at the insertion site. The [id number] needle was then introduced through the skin incision into the pleural space using negative aspiration pressure and the red colorimetric indicator to confirm appropriate positioning of the needle. The thoracentesis catheter was then threaded without difficulty.? 2100 ml of blood tinged?fluid was removed without difficulty. The catheter was then removed. No immediate complications were noted during the procedure. A post-procedure chest X-ray is pending at the time of this note. The fluid will be sent for routine pleural studies, cultures along with cytopathology.? Patient tolerated the procedure well? Estimated blood loss is 2cc.
[2025-03-30 14:27] LABS: Lactate Dehydrogenase 6097 U/L (313-618)
[2025-03-30 14:38] LABS: Appearance,Body Fld. Cloudy; Source, Body Fld. Thoracentesis Fluid; Volume,Body Fld. 2100 mL
[2025-03-30 14:39] LABS: Mononuclear WBCs,Body Fluid 90 %; Polynuclear WBC,Body Fluid 10 %; RBC,Body Fluid 36000 cells/uL (< 10 X 10^3); TNC,Body Fluid 636 cells/uL (< 1000)
--- NOTE | 2025-03-30 15:15 | PC.NURSE ---
Bedside thoracentesis performed by Dr. Funez, patient tolerated well and band aid applied to incision. VS stable and patient remained on 5LNC. Turned q2, lung sounds diminished. Patient will arouse to voice but still confused to place, time, situation.
--- NOTE | 2025-03-30 17:06 | P.PN_ITS ---
Subjective *Date: 03/30/25 *Time: 17:06 Interval history: Patient confused and minimally responsive on exam. On 4 L oxygen with sats above 90%. Afebrile. Lost her IVs overnight, refusing labs and further sticks this morning. Pulmonology evaluating for palliative thoracentesis. Family interested. Medical Exam Vital signs and Labs for Last 24 Hours: Vital Signs Temp Pulse Resp BP Pulse Ox O2 Del Method O2 Flow Rate 03/30/25 17:04 Nasal Cannula 4 03/30/25 14:53 Nasal Cannula 5 03/30/25 13:05 Nasal Cannula 5 03/30/25 11:00 Nasal Cannula 5 03/30/25 09:05 Nasal Cannula 4 03/30/25 08:40 Nasal Cannula 4 03/30/25 08:00 97.6 F 99 H 20 95/51 L 98 Nasal Cannula 5 03/30/25 06:15 Nasal Cannula 4 03/30/25 05:00 Nasal Cannula 4 03/30/25 04:00 97.8 F 116 H 16 104/65 L 91 L Nasal Cannula 4 03/30/25 03:00 Nasal Cannula 4 03/30/25 01:00 Nasal Cannula 4 03/29/25 23:00 Nasal Cannula 4 03/29/25 20:44 Nasal Cannula 4 03/29/25 20:12 98.3 F 95 H 22 123/81 90 L Nasal Cannula 4 03/29/25 20:00 Nasal Cannula 4 03/29/25 18:35 Nasal Cannula 03/29/25 17:37 Nasal Cannula 4 Intake and Output 03/30/25 03/30/25 03/30/25 07:59 15:59 23:59 Intake Total 100 / 100 Balance 100 / 100 Intake: Intake, Total IV Amount 100 / 100 Cefepime HCl 2 gm In 0.9 % 100 / 100 Sodium Chloride 100 ml @ 200 mls/hr IV Q24H [facility] Rx#:[id number] Other: Number of Unmeasured Voids 0 0 Weight 71.033 kg Patient Weight 03/30/25 23:59 Weight 71.033 kg Laboratory Results - last 24 hr 03/29/25 10:40: HCV Ab [place] w/Rflx PCR Qn Negative 03/29/25 18:18: Lactate 3.2 H 03/29/25 22:45: NT-Pro-B Natriuret Pep 92658 H 03/30/25 06:18: Lactate Dehydrogenase 6097 H 03/30/25 13:00: Fluid Source Thoracentesis fluid, Fluid Volume 2100, Fluid Appearance Cloudy, Fluid RBC (Auto) 12372, Fld Tot Nucleated Cell 636, Fld Polynuclear WBCs % 10, Fld Mononuclear WBCs % 90 I & O for Labs for Last 24 Hours: Intake & Output 03/27/25 03/28/25 03/29/25 03/30/25 23:59 23:59 23:59 23:59 Intake Total 500 / 600 100 / 100 Output Total 400 / 400 Balance 100 / 200 100 / 100 Weight 72.575 kg 71.033 kg Microbiology Reports for the Last 24 Hours: Microbiology 03/30/25 13:00 Thoracic Fluid Gram Stain - Final 03/29/25 11:35 Blood Blood Culture - Preliminary NO GROWTH AFTER 24 HOURS 03/29/25 10:35 Blood Blood Culture - Preliminary NO GROWTH AFTER 24 HOURS Constitutional: Present mild distress, chronically ill appearing and somnolent Head: Present atraumatic and normocephalic ENT: Present normal exam Respiratory: Present diminished air movement and normal respiratory effort; Absent respiratory distress or wheezes Cardiac: Present Tachycardia Comment:: Irregularly irregular GI: Present soft, tenderness (Nonfocal) and normal bowel sounds; Absent distention Extremities: Present normal inspection and full ROM Skin: Present intact; Absent erythema Neuro: Present Grossly Intact, alert, awake and moves all extremities Assessment and Plan *Assessment and plan (1) Metastatic cancer: Status: Acute Category: Medical Code(s): C79.9 - Secondary malignant neoplasm of unspecified site (2) Pleural effusion: Status: Acute Category: Medical Code(s): J90 - Pleural effusion, not elsewhere classified (3) Lung mass: Status: Acute Category: Medical Code(s): R91.8 - Other nonspecific abnormal finding of lung field (4) SLADE (acute kidney injury): Status: Acute Category: Medical Code(s): N17.9 - Acute kidney failure, unspecified (5) Afib: Status: Acute Category: Medical Code(s): I48.91 - Unspecified atrial fibrillation Barbi Cleary is a 89-year-old female who is a former smoker and no other significant medical history who presents with progressive weakness, shortness of breath. She was recently evaluated at [facility] in November 2024 and was found to have a right lung mass. Patient and family decided not to pursue chemotherapy due to adverse side effects. Unfortunately, over the past 2 weeks patient has had functional decline, progressive weakness, and shortness of breath. CTA chest shows multiple right lung lesions concerning for cancer, with metastasis to the liver. Also found to have a large right likely malignant ple ural effusion. ED provider had extensive conversation with the family, and they ultimately elected to pursue hospice care. Other workup includes sodium 129, potassium 5.5, creatinine 1.9, AST/ALT 976/229. Case discussed by the ED provider and decision was made to admit patient for further discussion of findings and hospice care. Family interested in hospice consult today. Case management assisting with consultation. Anticipate discharge to hospice in the next day or 2. 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 CTA findings concerning for right lung cancer, metastasis to the liver. 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 ? Pulmonology consulted, discussed case, consulted with family, they would like to proceed with thoracentesis of large right pleural effusion for symptom improvement. - Scheduled for ultrasound paracentesis this afternoon, removed 2100 cc of blood-tinged fluid. - DuoNebs every 4 hours on scheduled basis along with Augmentin 3 times daily pending pleural fluid culture results - Continue oxygen supplementation to maintain O2 saturation goal of 90% and above -PT/INR elevated above 4.5 yesterday, received vitamin K. Unable to repeat today due to refusal for labs. Repeat CBC, CMP, PT/INR ordered for the morning. ? Given renal failure and unknown baseline, held off on Lasix challenge tonight to allow patient to rest. Currently comfortable without respiratory distress. ? Follow-up CMP, CBC, PT/INR in the morning. DNR/DNI Comfort feeds
[2025-03-30 19:37] VITALS: BP 108/36; PULSE 72; RESP 20; TEMP 37.1; O2SAT 92
--- NOTE | 2025-03-31 03:28 | PC.NURSE ---
Pt alert to self, has been resting for most of the shift. She is arousable to name. 4L NC. Unable to take PO meds last pm. Respirations even. Resting in low, locked bed with call light in reach.
[2025-03-31 04:00] VITALS: BMI 26.0
[2025-03-31 06:49] LABS: Basophils % 0.2 % (0.1-2.0); Eosinophils % 0.1 % (0.1-12.0); Hematocrit 44.5 % (37.0-47.0); Hemoglobin 14.9 g/dL (12.2-16.2); Immature Granulocytes # 0.12 10^3uL; Immature Granulocytes % 1.2 %; Lymphocytes # 0.8 K/mm3 (0.7-4.5); Lymphocytes % 7.9 % (10-50); Mean Corpuscular HGB Conc 33.5 g/dL (31.8-35.4); Mean Corpuscular Hemoglobin 31.2 pg (27.0-31.2); Mean Corpuscular Volume 93.1 fl (81-99); Mean Platelet Volume 9.2 fl (7.4-10.4); Monocytes # 1.4 K/mm3 (0.1-1.0); Monocytes % 13.9 % (1.7-9.3); Neutrophils % 76.7 % (37.0-80.0); Nucleated Red Blood Cells # 0.04 10^3/uL; Nucleated Red Blood Cells % 0.4 %; Platelet Count 233 K/mm3 (142-424); Red Blood Count 4.78 M/mm3 (4.20-5.40); Red Cell Distribution Width 16.1 % (11.5-17.5); Red Cell Distribution Width-SD 49.9 fL; White Blood Count 10.4 K/mm3 (4.8-10.8)
[2025-03-31 07:07] LABS: Alanine Aminotransferase 262 U/L (12-78); Albumin Level 2.8 g/dl (3.5-5.0); Alkaline Phosphatase 114 U/L (38-126); Anion Gap 11.7 mEq/L (5-15); Bilirubin,Total 1.1 mg/dl (0.2-1.3); Blood Urea Nitrogen 77 mg/dl (7-17); Calcium 9.6 mg/dl (8.4-10.2); Carbon Dioxide 21 mmol/L (22.0-30.0); Chloride 105 mmol/L (98-107); Globulin 2.7 g/dL (1.3-3.2); Glucose 64 mg/dl (74-100); Magnesium 2.3 mg/dl (1.6-2.3); Potassium 5.7 mmoL/L (3.5-5.1); Sodium 132 mmol/L (136-145); Total Protein,Serum 5.5 g/dl (6.3-8.2)
[2025-03-31 07:14] LABS: Creatinine Clearance Estimated 13 mL/min (50-200); Estimated Glomerular Filt Rate 13 ml/min (>60); GFR (African American) 15 ML/MIN (>60)
--- NOTE | 2025-03-31 07:19 | P.DS_ITS ---
General Admission date:: 03/29/25 Discharge date: 03/31/25 HPI HPI HPI: Kassandra Cleary is a 89-year-old female who is a former smoker and no other significant medical history who presents with progressive weakness, shortness of breath. She was recently evaluated at [facility] in November 2024 and was found to have a right lung mass. Patient and family decided not to pursue chemotherapy due to adverse side effects. Unfortunately, over the past 2 weeks patient has had functional decline, progressive weakness, and shortness of breath. CTA chest shows multiple right lung lesions concerning for cancer, with metastasis to the liver. 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 ED provider had extensive conversation with the family, and they ultimately elected to pursue hospice care. Other workup includes sodium 129, potassium 5.5, creatinine 1.9, AST/ALT 976/229. Case discussed by the ED provider and decision was made to admit patient for further discussion of findings and hospice care. Hospital Course Hospital Course Hospital Course: Kassandra Cleary is a 89-year-old female who is a former smoker and no other significant medical history who presents with progressive weakness, shortness of breath. She was recently evaluated at [facility] in November 2024 and was found to have a right lung mass. Patient and family decided not to pursue chemotherapy due to adverse side effects. Unfortunately, over the past 2 weeks patient has had functional decline, progressive weakness, and shortness of breath. CTA chest shows multiple right lung lesions concerning for cancer, with metastasis to the liver. 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 ED provider had extensive conversation with the family, and they ultimately elected to pursue hospice care. Repeat labs on day of discharge show worsening kidney function with BUN 77, creatinine 3.4. Potassium 5.7. Somnolent but responsive to loud voice with attempt to say good morning. Patient's condition declining. Anticipate days to weeks at best. Hospice will admit her when she gets home today. In line with goals of care, no further antibiotics. Patient having difficult time taking medications. Will initiate morphine concentrate liquid if patient has pain. 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 CTA findings concerning for right lung cancer, metastasis to the liver. 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 Pulmonology consulted, performed palliative thoracentesis on 03/30. Still requiring 4 L oxygen. Will discharge with hospice in line with goals of care. Total time spent on discharge 32 minutes in counseling, documentation, chart review, and direct care with patient. Exam Data for Last 24 hours Vital signs and Labs for Last 24 Hours: Temp Pulse Resp BP Pulse Ox O2 Del Method O2 Flow Rate 98.7 F 72 20 108/36 L 92 L Nasal Cannula 4 03/30/25 19:37 03/30/25 19:37 03/30/25 19:37 03/30/25 19:37 03/30/25 19:37 03/31/25 06:37 03/31/25 06:37 Laboratory Results - last 24 hr 03/30/25 06:18: Lactate Dehydrogenase 6097 H 03/30/25 13:00: Fluid Source Thoracentesis fluid, Fluid Volume 2100, Fluid Appearance Cloudy, Fluid RBC (Auto) 72787, Fld Tot Nucleated Cell 636, Fld Polynuclear WBCs % 10, Fld Mononuclear WBCs % 90 03/31/25 06:17: WBC 10.4, RBC 4.78, Hgb 14.9, Hct 44.5, MCV 93.1, MCH 31.2, MCHC 33.5, RDW 16.1, Plt Count 233, MPV 9.2, Neut % (Auto) 76.7, Lymph % (Auto) 7.9 L , [place] % (Auto) 13.9 H, Eos % (Auto) 0.1, Baso % (Auto) 0.2, Neut # (Auto) 8.0 H , Lymph # (Auto) 0.8, [place] # (Auto) 1.4 H, Eos # (Auto) 0.0, Baso # (Auto) 0.0 I & O for Last 24 hours: Intake & Output 03/28/25 03/29/25 03/30/25 03/31/25 23:59 23:59 23:59 23:59 Intake Total 500 / 600 100 / 100 Output Total 400 / 400 100 / 100 Balance 100 / 200 0 / 0 Weight 72.575 kg 71.033 kg 70.902 kg Microbiology Reports for the Last 24 Hours: Microbiology 03/30/25 13:00 Thoracic Fluid Gram Stain - Final 03/29/25 11:35 Blood Blood Culture - Preliminary NO GROWTH AFTER 24 HOURS 03/29/25 10:35 Blood Blood Culture - Preliminary NO GROWTH AFTER 24 HOURS Constitutional Constitutional: moderate distress, average body habitus, chronically ill appearing and somnolent *Routine HEENT Exam Head: Present normocephalic Eye: Present EOMI and PERRL ENT: Present mucous membranes dry *Routine Neck Exam Neck: Present supple; Absent lymphadenopathy *Routine Respiratory Exam Respiratory: Present CTA bilaterally; Absent respiratory distress, stridor, wheezes or crackles *Routine Cardiovascular Exam Cardiovascular: Present tachycardia and irregular rhythm *Routine Abdominal Exam Abdominal: Present soft and normoactive bowel sounds; Absent tenderness *Routine Rectal Exam Patient deferred: visual exam *Routine Exam Patient deferred: external exam *Routine Extremities Exam Extremities: Present edema (trace BLE); Absent cyanosis or clubbing Comments: Feet cool to touch *Routine Skin Exam Skin: Present intact and warm; Absent rash Comments: mottling of feet *Routine Neurological Exam Neurological: Present altered mental status Comments: Somnolent, responds to loud voice with attempt to say good morning but did not open eyes to voice or physical stimuli Results Data Completed and Pending Labs on day of discharge: Labs from last 24 hours 03/31/25 03/30/25 03/30/25 06:17 13:00 06:18 WBC 10.4 RBC 4.78 Hgb 14.9 Hct 44.5 MCV 93.1 MCH 31.2 MCHC 33.5 RDW 16.1 Plt Count 233 MPV 9.2 Neut % (Auto) 76.7 Lymph % (Auto) 7.9 L [place] % (Auto) 13.9 H Eos % (Auto) 0.1 Baso % (Auto) 0.2 Neut # (Auto) 8.0 H Lymph # (Auto) 0.8 [place] # (Auto) 1.4 H Eos # (Auto) 0.0 Baso # (Auto) 0.0 Lactate Dehydrogenase 6097 H Fluid Source Thoracentesis fluid Fluid Volume 2100 Fluid Appearance Cloudy Fluid RBC (Auto) 33700 Fld Tot Nucleated Cell 636 Fld Polynuclear WBCs % 10 Fld Mononuclear WBCs % 90 Preliminary micro results at discharge 03/29/25 11:35 Blood Culture - Preliminary Blood NO GROWTH AFTER 24 HOURS 03/29/25 10:35 Blood Culture - Preliminary Blood NO GROWTH AFTER 24 HOURS DS: Diagnosis Discharge Diagnosis (1) Metastatic cancer: Status: Acute Code(s): C79.9 - Secondary malignant neoplasm of unspecified site (2) Pleural effusion: Status: Acute Code(s): J90 - Pleural effusion, not elsewhere classified (3) Lung mass: Status: Acute Code(s): R91.8 - Other nonspecific abnormal finding of lung field (4) SLADE (acute kidney injury): Status: Acute Code(s): N17.9 - Acute kidney failure, unspecified (5) Afib: Status: Acute Code(s): I48.91 - Unspecified atrial fibrillation Meds Home Medications and Allergies Home Medications ?Medication ?Instructions ?Recorded ?Confirmed ?Type morphine concentrate 100 mg/5 mL 5 mg (0.25 mL) PO Q6H PRN pain #30 03/31/25 Rx (20 mg/mL) oral solution mL New Prescriptions to Start Prescriptions: morphine concentrate Davi Cutler Allergies Allergy/AdvReac Type Severity Reaction Status Date / Time No Known Allergies Allergy Verified 03/29/25 11:13 Discharge Plan Disposition Patient Disposition: Hospice - Home Condition: Serious Discharge Order Discharge Orders: Discharge Order (Routine); Ordered 03/31/25 Ordered By: Davi Cutler Follow up Plan Prescriptions/Medication Reconciliation: New morphine concentrate 100 mg/5 mL (20 mg/mL) solution 5 mg PO Q6H PRN (Reason: pain) Qty: 30 0RF Problem Reconciliation Problems Reviewed?: Yes Patient Discharge Instructions ACTIVITY: Continue current activity DIET: continue same diet Patient Instructions: DI for Dehydration -- Adult, DI for Hyperkalemia, DI for Hyponatremia, DI for Pleural Effusion, DI for Acute Kidney Injury, Catheter- Associated Urinary Tract Infection Print Language: [place]ian Providers Primary Care Provider: Hugh Gordillo Provider: Norberto Nolasco Attending Provider: Norberto Nolasco
[2025-03-31 07:21] LABS: Aspartate Amino Transferase 1101 U/L (14-36)
[2025-03-31 08:00] VITALS: BP 75/37; PULSE 83; RESP 18; TEMP 37.6; O2SAT 91
--- NOTE | 2025-03-31 09:40 | EXP.PULM.PN ---
Subjective *Date: 03/31/25 *Time: 12:35 Interval history: No acute respiratory events overnight. Pulmonology Exam Inpatient Vital signs and Labs for Last 24 Hours: Temp Pulse Resp BP Pulse Ox O2 Del Method O2 Flow Rate 99.6 F 83 18 75/37 L 91 L Nasal Cannula 4 03/31/25 08:00 03/31/25 08:00 03/31/25 08:00 03/31/25 08:00 03/31/25 08:00 03/31/25 08:00 03/31/25 08:00 Laboratory Results - last 24 hr 03/30/25 06:18: Lactate Dehydrogenase 6097 H 03/30/25 13:00: Fluid Source Thoracentesis fluid, Fluid Volume 2100, Fluid Appearance Cloudy, Fluid RBC (Auto) 49844, Fld Tot Nucleated Cell 636, Fld Polynuclear WBCs % 10, Fld Mononuclear WBCs % 90 03/31/25 06:17: WBC 10.4, RBC 4.78, Hgb 14.9, Hct 44.5, MCV 93.1, MCH 31.2, MCHC 33.5, RDW 16.1, Plt Count 233, MPV 9.2, Neut % (Auto) 76.7, Lymph % (Auto) 7.9 L, [place] % (Auto) 13.9 H, Eos % (Auto) 0.1, Baso % (Auto) 0.2, Neut # (Auto) 8.0 H, Lymph # (Auto) 0.8, [place] # (Auto) 1.4 H, Eos # (Auto) 0.0, Baso # (Auto) 0.0, Sodium 132 L, Potassium 5.7 H, Chloride 105, Carbon Dioxide 21 L, Anion Gap 11.7, BUN 77 H D, Creatinine 3.40 H D, Estimated Creat Clear 13, Estimated GFR 13 L*, Est GFR ( Amer) 15 L* D, Glucose 64 L, Calcium 9.6, Magnesium 2.3, Total Bilirubin 1.1, AST 1101 H*, ALT 262 H, Alkaline Phosphatase 114, Total Protein 5.5 L, Albumin 2.8 L, Globulin 2.7, Albumin/Globulin Ratio 1.0 L Temp Pulse Resp BP Pulse Ox O2 Del Method O2 Flow Rate 97.6 F 99 H 20 95/51 L 98 Nasal Cannula 4 03/30/25 08:00 03/30/25 08:00 03/30/25 08:00 03/30/25 08:00 03/30/25 08:00 03/30/25 09:05 03/30/25 09:05 Laboratory Results - last 24 hr 03/29/25 10:25: Urine Color Yellow, Urine Appearance Clear, Urine pH 5.5, Ur Specific [place] 1.025, Urine Protein Trace, Urine Glucose (UA) Negative, Urine Ketones Negative, Urine Blood Negative, Urine Nitrate Negative, Urine Bilirubin Negative, Urine Urobilinogen 0.2, Ur Leukocyte Esterase Negative, Urine RBC None, Urine WBC None, Ur Squamous Epith Cells None, Urine Bacteria None 03/29/25 10:40: WBC 8.9, RBC 5.00, Hgb 15.5, Hct 47.5 H, MCV 95.0, MCH 31.0, MCHC 32.6, RDW 15.7, Plt Count 201, MPV 9.6, Neut % (Auto) 81.0 H, Lymph % (Auto) 7.7 L, [place] % (Auto) 10.3 H, Eos % (Auto) 0.1, Baso % (Auto) 0.2, Neut # (Auto) 7.2, Lymph # (Auto) 0.7, [place] # (Auto) 0.9, Eos # (Auto) 0.0, Baso # (Auto) 0.0, VBG pH 7.22 L, VBG pCO2 46.4, VBG pO2 88.4 H, VBG HCO3 18.4 L, VBG Total CO2 19.9 L, VBG O2 Saturation 95.7 H, VBG Base Excess -9.3 L, VBG Lactic Acid 4.7 H, Ammonia 9, Lipase 96, HCV Ab [place] w/Rflx PCR Qn Negative, HIV Ag/Ab Combo Qual Negative 03/29/25 10:52: Urine Opiates Screen Negative, Urine Methadone Screen Negative, Ur Barbituates Screen Negative, Ur Phencyclidine Scrn Negative, Ur Amphetamines Screen Negative, U Benzodiazepines Scrn Negative, Urine Cocaine Screen Negative, U Marijuana (THC) Screen Negative 03/29/25 11:35: PT 44.0 H, INR 4.57 H, Sodium 129 L, Potassium 5.5 H, Chloride 101, Carbon Dioxide 22, Anion Gap 11.5, BUN 59 H, Creatinine 1.90 H, Estimated Creat Clear 23, Estimated GFR 25 L, Est GFR ( Amer) 30 L, Glucose 219 H, Calcium 9.7, Total Bilirubin 0.9, AST 976 H*, ALT 229 H, Alkaline Phosphatase 118, Total Protein 6.0 L, Albumin 3.3 L, Globulin 2.7, Albumin/Globulin Ratio 1.2, TSH 9.82 H 03/29/25 15:15: Lactate 3.2 H 03/29/25 18:18: Lactate 3.2 H 03/29/25 22:45: NT-Pro-B Natriuret Pep 62762 H I & O for Labs for Last 24 Hours: Intake & Output 03/28/25 03/29/25 03/30/25 03/31/25 23:59 23:59 23:59 23:59 Intake Total 500 / 600 100 / 100 Output Total 400 / 400 100 / 100 Balance 100 / 200 0 / 0 Weight 160 lb 156 lb 9.6 oz 156 lb 5 oz Intake & Output 03/27/25 03/28/25 03/29/25 03/30/25 23:59 23:59 23:59 23:59 Intake Total 500 / 600 100 / 100 Output Total 400 / 400 Balance 100 / 200 100 / 100 Weight 160 lb 156 lb 9.6 oz Microbiology Reports for the Last 24 Hours: Microbiology 03/30/25 13:00 Thoracic Fluid Gram Stain - Final 03/29/25 11:35 Blood Blood Culture - Preliminary NO GROWTH AFTER 24 HOURS 03/29/25 10:35 Blood Blood Culture - Preliminary NO GROWTH AFTER 24 HOURS Constitutional: Present severe distress Head: Present normocephalic and atraumatic ENT: Present normal exam, normal oropharynx and mucous membranes moist Neck: Present normal inspection and full ROM Respiratory: Present respiratory distress, rhonchi, crackles, diminished air movement and able to speak in complete sentences; Absent wheezes or normal respiratory effort Cardiac: Present S1/S2, Tachycardia and radial pulses present GI: Present soft and distention; Absent tenderness or guarding Rectal (female): Present deferred (female): Present deferred Skin: Present intact; Absent cyanosis or jaundice Neuro: Present awake; Absent alert or oriented x 3 Extremities: Present normal inspection; Absent clubbing or cyanosis Psychiatric: Present unable to assess Assessment and Plan *Assessment and plan (1) Pleural effusion: Status: Acute Category: Medical Code(s): J90 - Pleural effusion, not elsewhere classified (2) Lung mass: Status: Acute Category: Medical Code(s): R91.8 - Other nonspecific abnormal finding of lung field Plan Ms. Cleary is a 89-year-old female greater than [id number] smoking who presented to the ER with worsening respiratory distress found to have lung mass and large left pleural effusion pulmonary was called for further evaluation and management. As per chart review patient has known that she had concerning lung cancer and decided not to pursue chemoradiation previously. INR 4.57. Electrolyte derangements including SLADE on CKD, hyponatremia and hyperkalemia. Afebrile. Hemodynamically stable. No evidence of leukocytosis. CTA upon admission no evidence of pulmonary embolism. Large right pleural effusion and lung mass along with lymphadenopathy. Patient lethargic. Not responding appropriately to verbal commands. Extensively discussed with the patient regarding possible etiologies. They would like to pursue thoracentesis to improve her current symptom control before pursuing hospice care. Risk and benefits explained to the family aspirin in setting of her elevated INR and hepatic dysfunction. Interval update: No acute respiratory vents overnight. Status post thoracentesis removal 2100 mL blood-tinged fluid. Results pending. Patient resting in bed comfortably. Not easily arousable. No new respiratory complaints as per the family. Continued to be needing oxygen supplementation at 2 to 4 L. Plan: From pulmonary standpoint we will recommend DuoNebs every 4 hours on scheduled basis along with Augmentin 3 times daily pending pleural fluid culture results Continue oxygen supplementation to maintain O2 saturation goal of 90% and above Follow-up with hospice recommendations
--- NOTE | 2025-03-31 14:54 | PC.NURSE ---
AMBULANCE ARRIVED TO TRANSPORT PT HOME. FAMILY AT BEDSIDE. PT HAS BEEN UNRESPONSIVE ALL SHIFT. SHALLOW RESPIRATIONS NOTED. MOTTLING NOTED FROM BILATERAL KNEES TO FEET. O2 SATURATION MAINTAINED 90-94% ON 4-5 L NC. PT HAS BEEN TURNED AND REPOSITIONED. ORAL CARE PROVIDED. CARE MANAGEMENT HAS NOTIFIED HOSPICE.
[2025-03-31 16:12] LABS: Albumin, Body Fluid 2.2 g/dL (Not Estab.); Glucose, Body Fluid 83 mg/dL (.); LD, Body Fluid 2014 IU/L (.); Protein, Body Fluid 3.5 g/dL (.)
== END 2025-03-31 14:58 | disposition home or self-care (01) | DRG 180 ==
LOC: ER 16:03 → 2ND 03-30 06:12
PROVIDERS: Internal Medicine Adolescent Medicine; Internal Medicine Pulmonary Disease; Student in an Organized Health Care Education/Training Program; Admitting Provider Student in an Organized Health Care Education/Training Program; Emergency Provider Emergency Medicine; PCP Internal Medicine; Visit Provider Student in an Organized Health Care Education/Training Program
DX: C34.90 Malignant neoplasm of unspecified part of unspecified bronchus or lung (principal); J96.01 Acute respiratory failure with hypoxia; E22.2 Syndrome of inappropriate secretion of antidiuretic hormone; N17.9 Acute kidney failure, unspecified; J91.0 Malignant pleural effusion; C78.7 Secondary malignant neoplasm of liver and intrahepatic bile duct; Z66 Do not resuscitate; I48.91 Unspecified atrial fibrillation; I10 Essential (primary) hypertension; Z51.5 Encounter for palliative care; E86.0 Dehydration; E87.5 Hyperkalemia; R79.89 Other specified abnormal findings of blood chemistry; K72.90 Hepatic failure, unspecified without coma; N18.9 Chronic kidney disease, unspecified; Z87.891 Personal history of nicotine dependence
CPT/HCPCS: 32555; 36415; 51702; 70450; 70496; 70498; 71045; 71275; 74177; 80053; 80307; 81001; 82042; 82140; 82803; 82945; 83605; 83615; 83690; 83735; 83880; 84157; 84443; 85025; 85610; 86803; 87040; 87070; 87205; 87389; 88112; 88305; 88341; 88342; 89051; 93005; 99291; J0692; J3430; J7050; Q9967